=== PATIENT | female | born 1975 | race Caucasian/White ===

== ENCOUNTER 2020-07-10 13:30 | Outpatient (REF) | payer OTHER, SELFPAY ==
[2020-07-10 13:59] LABS: COVID-19 Test Negative (Negative)
== END 2020-07-10 13:31 | disposition home or self-care (01) ==
LOC: HO.EMPCOV 13:30
PROVIDERS: PCP Nurse Practitioner Family; Visit Provider Internal Medicine
DX: Z20.828 Contact with and (suspected) exposure to other viral communicable diseases (principal)
CPT/HCPCS: 87635; C9803

== ENCOUNTER 2020-09-17 15:08 | Outpatient (REF) | payer OTHER, SELFPAY ==
[2020-09-17 15:32] LABS: COVID-19 Test Negative (Negative)
== END 2020-09-17 15:09 | disposition home or self-care (01) ==
LOC: HO.EMPCOV 15:08
PROVIDERS: Visit Provider Internal Medicine
DX: Z20.822 Contact with and (suspected) exposure to COVID-19 (principal)
CPT/HCPCS: 36415; 87635; C9803

== ENCOUNTER → 2021-10-08 11:21 | Outpatient (BNVA) | payer OTHER, SELFPAY | PROVIDERS: PCP Nurse Practitioner Family; Visit Provider Surgery | DX: K61.0 Anal abscess (principal) | CPT/HCPCS: 10060; 10061 ==

== ENCOUNTER → 2021-10-15 15:39 | Outpatient (BNVA) | payer OTHER, SELFPAY | PROVIDERS: PCP Nurse Practitioner Family; Visit Provider Surgery | DX: Z13.89 Encounter for screening for other disorder (principal) ==

== ENCOUNTER 2022-04-22 14:12 | Outpatient (REF) | payer OTHER, SELFPAY ==
[2022-04-22 15:00] LABS: MANUAL DIFF FLAG NO
[2022-04-22 15:31] LABS: Basophils Absolute Auto 0.1 X10*3/uL (0.0-0.2); Basophils Percent Auto 0.9 % (0-2); Eosinophils Absolute Auto 0.1 X10*3/uL (0.0-0.4); Eosinophils Percent Auto 1.2 % (0-4); Imm Gran Abs Auto 0.02 X10*3/uL (0.00-0.03); Imm Gran Pct Auto 0.2 % (0.0-0.4); Immature Retic Fraction 16.6 % (3.0-15.9); Lymphocytes Absolute Auto 2.4 X10*3/uL (1.2-4.9); Lymphocytes Percent Auto 29.2 % (20-40); Mean Corpuscular HGB Conc 32.1 g/dl (31.0-35.0); Mean Corpuscular Hemoglobin 27.7 pg (27.0-33.0); Mean Corpuscular Volume 86.2 fL (80.0-98.0); Mean Platelet Volume 9.3 fL (9.4-12.3); Monocytes Absolute Auto 0.5 X10*3/uL (0.1-1.2); Monocytes Percent Auto 6.4 % (2-11); Neutrophils Absolute Auto 5.1 x10*3/uL (2.0-8.3); Neutrophils Percent Auto 62.1 % (45-73); Platelet Count 306 X10*3/uL (160-400); Red Blood Count 3.25 X10*6/uL (4.20-5.50); Red Cell Distribution Width 18.8 % (11.0-16.0); Retic HGB Equivalent 37.1 pg (30.0-35.0); Reticulocyte Percent 1.4 % (0.5-1.8); Reticulocytes Absolute 0.047 X10*6/uL (0.026-0.095); White Blood Count 8.2 X10*3/uL (4.8-10.8)
[2022-04-22 16:01] LABS: Alanine Aminotransferase 53 U/L (0-31); Albumin Level 4.3 g/dL (3.5-5.0); Alkaline Phosphatase 103 U/L (39-117); Anion Gap 17 (12-20); Aspartate Amino Transferase 70 U/L (5-31); Bilirubin Total 0.4 mg/dL (0.0-1.0); Blood Urea Nitrogen 12 mg/dL (9-16); C Reactive Protein 0.09 mg/dL (< or = 0.50); Calcium 9.5 mg/dL (8.4-10.2); Carbon Dioxide 25 mmol/L (22-29); Chloride 101 mmol/L (96-108); Estimated Glomerular Filt Rate > 60; Glucose Random 101 mg/dL (60-115); Iron 41 mcg/dL (30-160); Magnesium 1.5 mg/dL (1.6-2.6); Potassium 4.3 mmol/L (3.3-5.1); Sodium 139 mmol/L (135-145); Total Protein 8.1 g/dL (6.5-8.0)
[2022-04-22 16:13] LABS: Erythrocyte Sedimentation Rate 27 MM/HR (0-20)
[2022-04-22 16:15] LABS: Ferritin 36 ng/mL (10-250)
[2022-04-22 16:44] LABS: Percent Iron Saturation 7 % (15-50); Total Iron Binding Capacity 563 mcg/dL (228-428); Unsaturated Iron Binding 522 ug/dL
[2022-04-23 07:12] LABS: HBS Num1 277.56 mIU/mL (0-7.99); HBc Num1 0.07 S/CO (0.00-0.79); HBsAGNum1 0.29 S/CO (0.00-0.99); Hepatitis A Antibody IgM 0.26 Index (0-0.79); Hepatitis B Core Antibody Nonreactive (Nonreactive); Hepatitis B Surface Antigen Negative (Negative); ~HepC Num1 0.06 S/CO (0.00-0.79); ~Hepatitis A Antibody IgM Nonreactive (Nonreactive); ~Hepatitis B Surface Antibody REACTIVE (Nonreactive); ~Hepatitis C Antibody Nonreactive (Nonreactive)
== END 2022-04-22 14:13 | disposition home or self-care (01) ==
LOC: HO.LAB 14:12
PROVIDERS: PCP Nurse Practitioner Family; Visit Provider Nurse Practitioner Family
DX: D64.9 Anemia, unspecified (principal); M79.604 Pain in right leg; M79.605 Pain in left leg
CPT/HCPCS: 36415; 80053; 82728; 83540; 83735; 85025; 85045; 85652; 86140; 86704; 86706; 86709; 86803; 87340

== ENCOUNTER 2022-06-03 09:14 | Outpatient (REF) | payer OTHER, SELFPAY ==
[2022-06-03 10:15] LABS: Rheumatoid Factor 28.7 IU/mL (<15.0)
[2022-06-03 10:37] LABS: Erythrocyte Sedimentation Rate 22 MM/HR (0-20)
[2022-06-07 15:26] LABS: Cyclic Citrullinated Peptide <16 UNITS
== END 2022-06-03 09:15 | disposition home or self-care (01) ==
LOC: HO.LAB 09:14
PROVIDERS: PCP Nurse Practitioner Family; Visit Provider Physician Assistant
DX: M33.20 Polymyositis, organ involvement unspecified (principal)
CPT/HCPCS: 36415; 85652; 86141; 86200; 86431

== ENCOUNTER 2022-06-14 12:38 | Outpatient (REF) | payer OTHER, SELFPAY ==
[2022-06-14 13:07] LABS: MANUAL DIFF FLAG NO
[2022-06-14 13:39] LABS: Basophils Absolute Auto 0.1 X10*3/uL (0.0-0.2); Basophils Percent Auto 0.8 % (0-2); Eosinophils Absolute Auto 0.1 X10*3/uL (0.0-0.4); Eosinophils Percent Auto 1.1 % (0-4); Hematocrit 36.5 % (37.0-47.0); Hemoglobin 11.8 g/dl (12.0-16.0); Imm Gran Abs Auto 0.03 X10*3/uL (0.00-0.03); Imm Gran Pct Auto 0.5 % (0.0-0.4); Lymphocytes Absolute Auto 2.2 X10*3/uL (1.2-4.9); Lymphocytes Percent Auto 32.7 % (20-40); Mean Corpuscular HGB Conc 32.3 g/dl (31.0-35.0); Mean Corpuscular Hemoglobin 30.8 pg (27.0-33.0); Mean Corpuscular Volume 95.3 fL (80.0-98.0); Mean Platelet Volume 9.2 fL (9.4-12.3); Monocytes Absolute Auto 0.6 X10*3/uL (0.1-1.2); Neutrophils Absolute Auto 3.7 x10*3/uL (2.0-8.3); Neutrophils Percent Auto 55.9 % (45-73); Platelet Count 279 X10*3/uL (160-400); Red Blood Count 3.83 X10*6/uL (4.20-5.50); Red Cell Distribution Width 16.9 % (11.0-16.0); White Blood Count 6.6 X10*3/uL (4.8-10.8)
[2022-06-14 14:06] LABS: Appearance Urine Clear; Color Urine DK YELLOW; Glucose Urine UA Negative (Negative); Leukocyte Esterase Urine Small (1+) (Negative); Nitrite Urine Negative (Negative); Specific Gravity - Urine >= 1.030 (1.005-1.025); UMIC TRIGGER UA YES; Urine Blood Negative (Negative); Urine Ketones Trace mg/dL (Negative); Urine Protein Trace mg/dL (Neg-Trace)
[2022-06-14 14:27] LABS: Erythrocyte Sedimentation Rate 25 MM/HR (0-20)
[2022-06-14 14:34] LABS: Creatinine Urine 362.04 mg/dL
[2022-06-14 14:41] LABS: Bacteria Urine Trace (None Seen); Hyaline Casts Urine 0-2 /LPF (0-2); RBC Urine 0-2 /HPF (0-2); WBC Urine 0-5 /HPF (0-5)
[2022-06-14 14:50] LABS: Alanine Aminotransferase 46 U/L (0-31); Albumin Level 4.4 g/dL (3.5-5.0); Alkaline Phosphatase 94 U/L (39-117); Anion Gap 17 (12-20); Aspartate Amino Transferase 67 U/L (5-31); Bilirubin Total 0.8 mg/dL (0.0-1.0); Blood Urea Nitrogen 4 mg/dL (9-16); C Reactive Protein 0.09 mg/dL (< or = 0.50); Calcium 9.8 mg/dL (8.4-10.2); Carbon Dioxide 25 mmol/L (22-29); Chloride 101 mmol/L (96-108); Estimated Glomerular Filt Rate > 60; Glucose Random 105 mg/dL (60-115); Lactate Dehydrogenase 174 U/L (122-220); Potassium 3.7 mmol/L (3.3-5.1); Sodium 139 mmol/L (135-145); Total Protein 8.2 g/dL (6.5-8.0)
[2022-06-14 14:58] LABS: TSH reflex Free T4 0.96 uIU/mL (0.32-4.0)
[2022-06-14 16:21] LABS: Total Protein Urine Random 37 mg/dL (<12)
[2022-06-15 16:51] LABS: Complement C3 141 mg/dL (83-193)
[2022-06-16 09:56] LABS: Anti-Centromere B Antibodies <1.0 NEG AI (<1.0 NEG)
[2022-06-16 12:26] LABS: Anti Nuclear Antibody Screen NEGATIVE (NEGATIVE)
[2022-06-16 15:57] LABS: TS Negative Control Passed; TS Panel A 4; TS Panel B 0; TS Positive Control Passed; TSpotTB Negative (Negative)
[2022-06-17 07:01] LABS: Anti DNA DS Antibody 2 IU/mL; Antibody to SS-A Antigen <1.0 NEG AI (<1.0 NEG); Antibody to SS-B Antigen <1.0 NEG AI (<1.0 NEG); SM/Ribonucleoprotein Ab <1.0 NEG AI (<1.0 NEG); Scleroderma 70 Antibody <1.0 NEG AI (<1.0 NEG); Smith Protein <1.0 NEG AI (<1.0 NEG)
[2022-06-18 23:11] LABS: Acetylcholine Receptor Binding <0.30 nmol/L
[2022-06-19 19:42] LABS: Acetylcholine Recep Modulating 21
[2022-06-22 03:45] LABS: Angiotensin Converting Enzyme 43.9 U/L (9-67)
[2022-06-22 19:26] LABS: Acetylcholine Recept. Blocking <15 (<15)
[2022-06-23 06:07] LABS: Aldolase 5.3 U/L (<=8.1)
== END 2022-06-14 12:39 | disposition home or self-care (01) ==
LOC: HO.LAB 12:38
PROVIDERS: PCP Nurse Practitioner Family; Visit Provider Student in an Organized Health Care Education/Training Program
DX: Z11.7 Encounter for testing for latent tuberculosis infection (principal); G72.9 Myopathy, unspecified
CPT/HCPCS: 36415; 80053; 81001; 82085; 82164; 82550; 83519; 83615; 84156; 84443; 85025; 85652; 86038; 86039; 86140; 86160; 86225; 86235; 86481

== ENCOUNTER 2022-06-16 15:50 | Outpatient (REF) | payer OTHER, SELFPAY | END 2022-06-16 15:51 | disposition home or self-care (01) | LOC: HO.MRI 15:50 | PROVIDERS: Visit Provider Student in an Organized Health Care Education/Training Program | DX: Z13.89 Encounter for screening for other disorder (principal) ==

== ENCOUNTER 2022-06-28 12:57 | Outpatient (REF) | payer OTHER, SELFPAY ==
--- NOTE | ~2022-06-28 | MR_ITS ---
EXAMINATION: MRI LEFT FEMUR WITHOUT AND WITH CONTRAST. CLINICAL INFORMATION: Myopathy. Patient reports leg pain, muscle pain. COMPARISON: None TECHNIQUE: MR of the left femur without and with contrast. 5.5 mL Gadavist. FINDINGS: No significant edema or enhancement is seen in the muscles of the femur to indicate significant myositis. No focal muscle tear is seen. No significant muscle fatty infiltration or atrophy is seen. Mild to moderate tendinosis/partial tearing of the distal gluteus minimus and the anterior fibers distal gluteus medius. The common hamstring, iliopsoas, rectus femoris tendons intact. No suspicious marrow signal changes in the femur. No evidence of fracture or avascular necrosis. No bulky adenopathy is visualized in the left groin. MR/MR femur LT wo/w con IMPRESSION: No MRI findings to suggest significant myositis in the left femur muscles. Mild to moderate tendinosis/partial tearing of the distal gluteus minimus and the anterior fibers of the distal gluteus medius.
== END 2022-06-28 12:58 | disposition home or self-care (01) ==
LOC: HO.MRI 12:57
PROVIDERS: Visit Provider Student in an Organized Health Care Education/Training Program
DX: G72.9 Myopathy, unspecified (principal)
CPT/HCPCS: 73720; A9585

== ENCOUNTER 2022-08-05 07:27 | Day surgery (SDC) | payer OTHER, SELFPAY ==
[2022-07-30 11:44] VITALS: BMI 23.2
--- NOTE | 2022-08-04 11:00 | P.CONAN_ITS ---
Documented by User: Analia Toussaint NP 08/04/22 11:02 HPI - Anesthesia Eval Consult details Narrative: 47yo F for Upper Endoscopy and Colonoscopy Hx colon resection/ostomy with reversal PMFSH Active Problems Active Problems: All Active Problems (Updated 07/06/22 @ 14:42 by Iram Edgar MD) Normochromic normocytic anemia (Acute) Polymyositis (Acute) Myopathy (Acute) Elevated LFTs (Acute) Tendinopathy of gluteus medius (Acute) Perianal abscess (Acute) Hypertension (Acute) Past Medical History Medical History Acute diverticulitis Anemia Encounter for testing for latent tuberculosis infection Hypertension Intestinal perforation Migraine Perianal abscess Family History Family History Maternal Grandfather Lung cancer Maternal Grandmother Stomach cancer Surgical History Surgical History History of appendix removal History of colon resection History of colostomy reversal History of drainage of abscess History of eye surgery Social History Social History Household Members: Significant Other and Children Housing: House Are you a primary manager respiratory care to a significant other at home: No Do you presently have visiting nurse or other home services: No Alcohol intake: current Alcohol intake frequency: holidays/special occasions only Patient Tobacco Use Status: Current someday Tobacco user Tobacco use type: Cigarette Are you DNR?: No Advance Directives: No Advance Directives Information Provided: Yes Nutrition Risks: No Nutritional Risk service: No Current occupational status: employed Current occupation: [employer] Meds Allergies Allergy/AdvReac Type Severity Reaction Status Date / Time morphine Allergy Unknown redness Verified 08/05/22 07:23 Home Medications Medication Instructions Recorded Confirmed Last Taken Type multivitamin 1 tab PO DAILY 10/08/21 08/05/22 Unknown History biotin 5,000 mcg sublingual tablet 5,000 mcg sublingual DAILY 05/18/22 08/05/22 Unknown History cetirizine 10 mg tablet (Zyrtec) 10 mg PO DAILY 05/18/22 08/05/22 Unknown History cholecalciferol (vitamin D3) 125 125 mcg PO DAILY 05/18/22 08/05/22 Unknown History mcg (5,000 unit) tablet (Vitamin D3) cyanocobalamin (vitamin B-12) 1,000 mcg PO DAILY 05/18/22 08/05/22 Unknown History 1,000 mcg tablet,extended release (Vitamin B-12 ER) ferrous sulfate 325 mg (65 mg 325 mg PO DAILY 05/18/22 08/05/22 Unknown History iron) tablet folic acid 400 mcg tablet 0.4 mg PO DAILY 05/18/22 08/05/22 Unknown History vitamin B complex 1 tab PO DAILY 05/18/22 08/05/22 Unknown History esomeprazole magnesium 20 mg 20 mg PO DAILY 05/27/22 08/05/22 Unknown History capsule,delayed release clonazepam 1 mg tablet 0.5 mg PO DAILY Migraine Headache 06/04/22 08/05/22 08/05/22 History propranolol 20 mg tablet 20 mg PO DAILY 06/04/22 08/05/22 08/05/22 History Exam Exam Date and Time: August 04, 2022 1100 Height,Weight and Vital Signs: Height 5 ft Weight 53.977 kg Pertinent Lab Results Pertinent Lab Results: Laboratory Tests 06/14/22 06/14/22 13:04 13:04 WBC 6.6 Hgb 11.8 L Hct 36.5 L Plt Count 279 Sodium 139 Potassium 3.7 Chloride 101 Carbon Dioxide 25 BUN 4 L D Creatinine 0.71 Documented by User: Marlyn Gil MD 08/05/22 09:10 [facility] Past Medical History Medical History Acute diverticulitis Anemia Encounter for testing for latent tuberculosis infection Hypertension Intestinal perforation Migraine Perianal abscess Family History Family History Maternal Grandfather Lung cancer Maternal Grandmother Stomach cancer Family history of problems with anesthesia: No Surgical History Surgical History History of appendix removal History of colon resection History of colostomy reversal History of drainage of abscess History of eye surgery History of Problems with Anesthesia: No Social History Social History Household Members: Significant Other and Children Housing: House Are you a primary manager respiratory care to a significant other at home: No Do you presently have visiting nurse or other home services: No Alcohol intake: current Alcohol intake frequency: holidays/special occasions only Patient Tobacco Use Status: Current someday Tobacco user Tobacco use type: Cigarette Are you DNR?: No Advance Directives: No Advance Directives Information Provided: Yes Nutrition Risks: No Nutritional Risk service: No Current occupational status: employed Current occupation: [employer] Meds Allergies Allergy/AdvReac Type Severity Reaction Status Date / Time morphine Allergy Unknown redness Verified 08/05/22 07:23 Home Medications Medication Instructions Recorded Confirmed Last Taken Type multivitamin 1 tab PO DAILY 10/08/21 08/05/22 Unknown History biotin 5,000 mcg sublingual tablet 5,000 mcg sublingual DAILY 05/18/22 08/05/22 Unknown History cetirizine 10 mg tablet (Zyrtec) 10 mg PO DAILY 05/18/22 08/05/22 Unknown History cholecalciferol (vitamin D3) 125 125 mcg PO DAILY 05/18/22 08/05/22 Unknown History mcg (5,000 unit) tablet (Vitamin D3) cyanocobalamin (vitamin B-12) 1,000 mcg PO DAILY 05/18/22 08/05/22 Unknown History 1,000 mcg tablet,extended release (Vitamin B-12 ER) ferrous sulfate 325 mg (65 mg 325 mg PO DAILY 05/18/22 08/05/22 Unknown History iron) tablet folic acid 400 mcg tablet 0.4 mg PO DAILY 05/18/22 08/05/22 Unknown History vitamin B complex 1 tab PO DAILY 05/18/22 08/05/22 Unknown History esomeprazole magnesium 20 mg 20 mg PO DAILY 05/27/22 08/05/22 Unknown History capsule,delayed release clonazepam 1 mg tablet 0.5 mg PO DAILY Migraine Headache 06/04/22 08/05/22 08/05/22 History propranolol 20 mg tablet 20 mg PO DAILY 06/04/22 08/05/22 08/05/22 History Exam Airway Mallampati Class: II TM Dist: >3cm Neck ROM: Full Heart: rr Lungs: cta Assessment and Plan Assessment Anesthesia Assessment: Anesthesia Plan Discussed and Chart Reviewed Final Anesthetic Review Family History of Problems with Anesthesia: No History of Problems with Anesthesia: No NPO: Yes ASA Class: II Final Preanesthetic Review: No Changes in Pt Med Stat, Meds/Allgs Chart Reviewed, Consent Obtained/Reviewed and Anes Risks/Benef Reviewed Patient Risk: Low Procedure Risk: Low Anesthetic Plan Anesthetic Plan: MAC: Disposition: Standard PACU
[2022-08-05 07:43] LABS: UPreg QC Valid YES; Urine Pregnancy NEGATIVE (NEGATIVE)
[2022-08-05] MEDS: Lactated Ringers 1,000 ML 100 ML IVCONT (07:54)
[2022-08-05 07:56] VITALS: BP 138/85; PULSE 83; RESP 18; TEMP 36.2; O2SAT 96
--- NOTE | 2022-08-05 08:25 | PC.NURSE ---
Dr. Gil aware that patient ate jello and 1/2 glass gatorade at 0330. Okay to proceed per anesthesia. will updated Dr. Valles
--- NOTE | 2022-08-05 08:35 | MHC.SHP ---
Pre-Procedural Eval Section A Date of Service: 08/05/22 Section B Chief Complaint: Anemia Details of Present Illness: 47-year-old female past medical history of complicated diverticulitis status post segmental colon resection followed by reversal of colostomy in 2019, appendectomy 2013, ongoing workup for myositis, who is here for EGD/colo for iron deficiency anemia Relevant Social History: Alcohol Use Present Medications: see Short Stay Collaborative assessment Medical History: Significant History (HTN, myositis, anemia ) History of Previous Operations: Relevant previous surgery/procedure and date(s) (as above ) Allergies: Allergies Allergy/AdvReac Type Severity Reaction Status Date / Time morphine Allergy Unknown redness Verified 08/05/22 07:23 Review of Systems Review of Systems Comment: 10 point ROS negative except as above Exam Exam Comment: Gen appear: No acute distress, well nourished HEENT: no icterus Chest: No overt resp distress Abd: soft, nontender, nondistended Psych: Stable affect, answering questions appropriately Neuro: A/Ox3 noted to move all extremities spontaneously Ext: no peripheral edema Plan Diagnosis/Plan: Unchanged I have reviewed the history and physical and performed a pertinent physical examination on my patient. No changes have occurred unless specified. Time Spent With Patient Time: Total time managing care of this patient today ____ minutes.
--- NOTE | 2022-08-05 09:18 | P.OP_ITS ---
Operative Note Operative Note Date of Service: 08/05/22 Narrative: Procedure:?Esophagogastroduodenoscopy and Colonoscopy Indication:?Anemia, diarrhea Endoscopist:?Ana M Valles MD Anesthesia Provider:?Dr Marlyn Gil Anesthesia type:?MAC Instrument:?Olympus GIF-H190 and PCF-H190L ?? EGD Procedure:?? The procedure, indications, preparation and potential complications were reviewed with the patient, who indicated understanding and gave written informed consent to proceed. A physical exam was performed. The endoscope was introduced through the mouth, and advanced to the third part of duodenum. The mucosa was carefully examined on slow withdrawal of the endoscope. The patient tolerated the procedure well. There were no immediate complications.? ? EGD Findings:? * Esophagus:? Normal mucosa. Z line noted at 37 cm. There was a small hiatal hernia with the diaphragmatic pinch noted at 40 cm. * Stomach:?Normal stomach mucosa. Random cold forceps gastric biopsies were taken to rule out H Pylori infection.? * Duodenum:? Normal duodenum mucosa. Cold forceps biopsies were taken from duodenal bulb and second portion of the duodenum to rule out celiac sprue. Colonoscopy Procedure:? The patient was then turned for the colonoscopy. A digital rectal exam was performed which was normal. The colonoscope was then inserted through the anus and advanced through the colon to the cecum at 70 cm. The appendiceal orifice and ileocecal valve was identified.? Mucosa was carefully examined under high definition white light as the instrument was slowly withdrawn in a retrograde panoramic fashion. Retroflexion was performed in rectum. The procedure was not difficult. There were no immediate obvious complications. The quality of the prep was BBPS: 2+2+2 = adequate Withdrawal time 16 minutes. Limitations: No limitations Colonoscopy findings: Mucosa: Mucosal pallor was noted in the rectum with spontaneous scant bleeding. Cold forceps biopsies were taken to rule out ischemic changes.Remaining colon mucosa was normal. Cold forceps biopsies were taken from right and left colon to rule out microscopic colitis. Protruding lesions: * Small internal hemorrhoids without stigmata of recent bleeding.? Excavated lesions: * Small and large mouthed diverticula noted throughout the colon L>R. Additional findings: [place]-colonic anastomosis in distal sigmoid colon. Impression:? * Normal esophagus * Normal stomach (biopsy) * Normal duodenum (biopsy) * Abnormal rectal mucosa (biopsy) * Diverticulosis * Internal hemorrhoids * Surgical anastomosis Recommendations:?? * Repeat colonoscopy in 7 years due to prep. * Follow biopsy results. Our office will call or send a letter with results within 7-10 days.? * Avoid NSAIDs. Above has been reviewed with the patient. Relevant educational hand outs were provided at discharge.?
[2022-08-05 09:27] VITALS: BP 135/81; PULSE 79; RESP 16; TEMP 36.4; O2SAT 99
[2022-08-05 09:42] VITALS: BP 139/80; PULSE 73; RESP 16; TEMP 36.4; O2SAT 99
== END 2022-08-05 10:14 | disposition home or self-care (01) ==
PROVIDERS: Nurse Practitioner; PCP Nurse Practitioner Family; Visit Provider Internal Medicine
PROC: (CPT 45380; principal; 2022-08-05 08:30)
DX: D50.9 Iron deficiency anemia, unspecified (principal); R19.7 Diarrhea, unspecified; K62.89 Other specified diseases of anus and rectum; K57.30 Diverticulosis of large intestine without perforation or abscess without bleeding; Z87.19 Personal history of other diseases of the digestive system; Z98.0 Intestinal bypass and anastomosis status; K64.8 Other hemorrhoids; R79.89 Other specified abnormal findings of blood chemistry; K29.80 Duodenitis without bleeding; K44.9 Diaphragmatic hernia without obstruction or gangrene; I10 Essential (primary) hypertension; M60.9 Myositis, unspecified; Z79.899 Other long term (current) drug therapy; Z88.8 Allergy status to other drugs, medicaments and biological substances; F10.90 Alcohol use, unspecified, uncomplicated; F17.210 Nicotine dependence, cigarettes, uncomplicated
CPT/HCPCS: 45380; 43239; 81025; 88305; 88342; J2250

== ENCOUNTER → 2022-08-20 08:17 | Outpatient (BNVA) | payer OTHER, SELFPAY | PROVIDERS: PCP Nurse Practitioner Family; Visit Provider Nurse Practitioner Family | DX: Z13.89 Encounter for screening for other disorder (principal) ==

== ENCOUNTER 2022-10-05 18:21 | Emergency (ER) | payer OTHER, SELFPAY ==
--- NOTE | ~2022-10-05 | CT_ITS ---
EXAMINATION: CT ABDOMEN AND PELVIS WITH CONTRAST CLINICAL INFORMATION: LLQ pain, hx doverticulitis COMPARISON: 11/08/2018 TECHNIQUE: Multidetector volumetric imaging was performed from the superior aspect of the liver through the pubic symphysis following administration of 85 mL Omnipaque 300 intravenous contrast. Sagittal and coronal reformatted images were obtained on the technologist workstation.. This CT examination was performed using dose optimization techniques as appropriate, variously including the following: *Automated exposure control *Adjustment of mA and/or kV according to patient size (this includes techniques or standardized protocols for targeted exams where dose is matched to indication/reason for exam; i.e. extremities or head) *Use of iterative reconstruction technique DLP: 392 mGy-cm FINDINGS: LUNG BASES: The visualized lung bases are unremarkable. LIVER, GALLBLADDER, AND BILIARY TREE: The liver is normal in size, shape, and attenuation. No focal hepatic lesion or biliary ductal dilatation is present. The gallbladder is unremarkable with no evidence of radiopaque gallstones, gallbladder wall thickening, or obvious pericholecystic inflammatory changes. PANCREAS: Unremarkable. SPLEEN: Unremarkable. ADRENAL GLANDS: Unremarkable. KIDNEYS AND URETERS: The kidneys are normal in size, shape, and attenuation. No hydronephrosis, hydroureter, or calculi seen. No perinephric stranding. BLADDER: Decompressed GASTROINTESTINAL TRACT: Anastomotic staple line at the rectosigmoid junction. There is scattered colonic diverticulosis but I do not appreciate any colonic wall thickening or significant pericolonic inflammatory change to suggest acute diverticulitis. Appendix is surgically absent. Visualized small bowel unremarkable ABDOMINAL WALL: No significant hernia is appreciated. LYMPHOVASCULAR STRUCTURES: No lymphadenopathy. The aorta is unremarkable. PELVIC VISCERA: IUD in the uterus OSSEOUS STRUCTURES: Degenerative changes in the lower lumbar spine CT/CT abdomen pelvis w IV con IMPRESSION: Chronic appearing and postoperative changes as described. I do not appreciate any acute intra-abdominal process.
--- NOTE | 2022-10-05 18:25 | ED_ITS ---
HPI - Abdominal Pain General Chief Complaint: Abdominal Pain <Vi Hamilton CNP - Last Filed: 10/05/22 18:33> Stated Complaint: Diverticulitis sent DR <Vi Hamilton CNP - Last Filed: 10/05/22 18:33> Time Seen by Provider: 10/05/22 19:41 <Vi Hamilton CNP - Last Filed: 10/05/22 18:33> Source: patient <WINSTON Matos - Last Filed: 10/05/22 21:53> Mode of arrival: ambulatory <WINSTON Matos - Last Filed: 10/05/22 21:53> Limitations: no limitations <WINSTON Matos - Last Filed: 10/05/22 21:53> History of Present Illness HPI narrative: This is a 47-year-old female history of hypertension, myopathy, polymyos itis, history of complicated diverticulitis status post segmental colon resection followed by reversal of colostomy in 2019, appendectomy in 2014 stenting with lower abdominal pain, was advised to come in by her GI doctor Dr. Valles. She reports that this lower abdominal pain has been present for the past 2-3 days, intermittent in nature, crampy, tells me that since she has been here pain has been improving. Patient reports associated nausea however no vomiting. Patient does report diarrhea tells me she is having 15 episodes of completely loose stool status post finishing amoxicillin a few days ago. Denies fevers, chills, chest pain, shortness of breath, headache, vision changes, dizziness, weakness, hematochezia, hematemesis. <WINSTON Matos - Last Filed: 10/05/22 21:53> Related Data Home Medications: Home Medications Medication Instructions Recorded Confirmed multivitamin 1 tab PO DAILY 10/08/21 08/20/22 biotin 5,000 mcg sublingual tablet 5,000 mcg sublingual DAILY 05/18/22 08/20/22 cetirizine 10 mg tablet (Zyrtec) 10 mg PO DAILY 05/18/22 08/20/22 cholecalciferol (vitamin D3) 125 125 mcg PO DAILY 05/18/22 08/20/22 mcg (5,000 unit) tablet (Vitamin D3) cyanocobalamin (vitamin B-12) 1,000 mcg PO DAILY 05/18/22 08/20/22 1,000 mcg tablet,extended release (Vitamin B-12 ER) ferrous sulfate 325 mg (65 mg 325 mg PO DAILY 05/18/22 08/20/22 iron) tablet folic acid 400 mcg tablet 0.4 mg PO DAILY 05/18/22 08/20/22 vitamin B complex 1 tab PO DAILY 05/18/22 08/20/22 clonazepam 1 mg tablet 0.5 mg PO DAILY Migraine Headache 06/04/22 08/20/22 propranolol 20 mg tablet 20 mg PO DAILY 06/04/22 08/20/22 omeprazole 20 mg capsule,delayed 20 mg PO DAILY 08/20/22 08/20/22 release Previous Rx's Medication Instructions Recorded celecoxib 100 mg capsule 100 mg PO BID PRN pain 30 days #60 09/22/22 caps loperamide 2 mg capsule 2 mg PO Q6H PRN loose stool #30 10/05/22 (Anti-Diarrheal (loperamide)) caps <Vi Hamilton CNP - Last Filed: 10/05/22 18:33> Allergies/Adverse Reactions: Allergies Allergy/AdvReac Type Severity Reaction Status Date / Time morphine Allergy Unknown redness Verified 08/20/22 08:50 <Vi Hamilton CNP - Last Filed: 10/05/22 18:33> Review of Systems Review of Systems Constitutional : No Weight loss, No Fever, No Chills, No Fatigue, No Malaise ENT/Mouth : No sore throat, No Rhinorrhea Eyes: No Eye Pain, No Swelling, No Redness Cardiovascular : No Chest Pain, No SOB, No Dyspnea on Exertion, No Orthopnea, No Edema, No Palpitations Respiratory : No Cough, No Sputum, No Wheezing Gastrointestinal : + Nausea, No Vomiting, No Diarrhea, No Constipation, + abdominal Pain, No Hematochezia, No Melena Genitourinary : No Dysuria, No Urinary Frequency, No Hematuria, Musculoskeletal : No joint pain, No Myalgias, No Joint Swelling Skin : No Skin Lesions, No rash Neuro : No Weakness, No Numbness, No Dizziness, No Headache Psych : No Anxiety/Panic, No Depression All other systems reviewed and are negative <WINSTON Matos - Last Filed: 10/05/22 21:53> Yes all other systems are reviewed and are negative <WINSTON Matos - Last Filed: 10/05/22 21:53> FORMERLY [facility] Past Medical History Attestation statement: The following information was validated with the patient. <WINSTON Matos - Last Filed: 10/05/22 21:53> Source: old records reviewed and nursing notes reviewed <WINSTON Matos - Last Filed: 10/05/22 21:53> Medical History: Medical History Acute diverticulitis Anemia Encounter for testing for latent tuberculosis infection Hypertension Intestinal perforation Migraine Perianal abscess <Vi Hamilton CNP - Last Filed: 10/05/22 18:33> Surgical History: Surgical History History of appendix removal History of colon resection History of colostomy reversal History of drainage of abscess History of eye surgery <Vi Hamilton CNP - Last Filed: 10/05/22 18:33> Family History Family History: Family History Maternal Grandfather Lung cancer Maternal Grandmother Stomach cancer Father Diabetes Cardiac arrest <Vi Hamilton CNP - Last Filed: 10/05/22 18:33> Social History Social History: Social History Household Members: Significant Other and Children Housing: House Are you a primary managed care manager to a significant other at home: No Do you presently have visiting nurse or other home services: No Alcohol intake: current Alcohol intake frequency: holidays/special occasions on ly Patient Tobacco Use Status: Current someday Tobacco user Tobacco use type: Cigarette Advance Directives: No Advance Directives Information Provided: No service: No Current occupational status: employed Current occupation: [employer] <Vi Hamilton CNP - Last Filed: 10/05/22 18:33> Physical Exam ED Vital Signs: Vital Signs - 24 hr 10/05/22 18:31 10/05/22 20:22 Temperature 98.7 F 98.7 F Pulse Rate 104 H 82 Respiratory Rate 18 16 Blood Pressure 157/102 H 151/89 H Pulse Oximetry 96 98 Oxygen Delivery Method Room Air Room Air BMI result Body Mass Index 24.4 <Vi CadenaRAQUEL rubi - Last Filed: 10/05/22 18:33> Vital Signs - 24 hr 10/05/22 18:31 10/05/22 20:22 Temperature 98.7 F 98.7 F Pulse Rate 104 H 82 Respiratory Rate 18 16 Blood Pressure 157/102 H 151/89 H Pulse Oximetry 96 98 Oxygen Delivery Method Room Air Room Air BMI result Body Mass Index 24.4 Vital signs significant for tachycardia likely secondary to anxiety <WINSTON Matos - Last Filed: 10/05/22 21:53> Appearance: Alert.? Oriented X3.? No acute distress.? Patient appears anxious, agitated. Head: Normocephalic, atraumatic, no step-offs or deformities Eyes: Pupils equal, round and reactive to light.? ENT: Pharynx normal.? Neck: Normal inspection.? Neck supple.? CVS: Normal heart rate and rhythm.? Pulses normal.? Respiratory: No respiratory distress.? Breath sounds normal.? Abdomen: Soft and mild tenderness to lower abdomen throughout.? Skin: Skin warm and dry.? Normal skin color.? Normal skin turgor.? Extremities: No lower extremity edema.? No calf ttp. 5/5 strength to bilateral upper and lower extremities Neuro: Oriented X 3.? No motor deficit.? No sensory deficit. CN 2-12 intact <WINSTON Matos - Last Filed: 10/05/22 21:53> Course Course Course Narrative: This is an RME: Additional HPI, ROS, PE not included below will be deferred to primary provider. Patient is a 47-year-old female who presents to the emergency department as advised by GI doctor. Received expect from Dr. Vlales; patient with lower abdominal pain cramping history of complicated diverticulitis with partial colectomy in the past. Concern for acute diverticulitis. Patient is reporting onset of lower abdominal pain to be 2-3 days ago. Denies bloody or dark stools. Stools have been loose, and has pain with bowel movement. Denies symptoms. Plan: labs, urinalysis, CT ABD and pelvis <Vi Hamilton CNP - Last Filed: 10/05/22 18:33> Reevaluation(s) Reevaluation #1: CBC appears to be around patient's baseline. Chemistry with low potassium 3.1 will give oral potassium at this time. Lactic acid elevated 2.2 likely secondary to dehydration. UA without infection. CT of the abdomen and pelvis with chronic appearing and postoperative changes as described. No appreciated acute intra-abdominal process seen. <WINSTON Matos - Last Filed: 10/05/22 21:53> Time: 21:40 <WINSTON Matos - Last Filed: 10/05/22 21:53> Reevaluation #2: Patient reports the pain has subsided. Repeat laboratory studies will be obtained. GI/stool studies pending. <WINSTON Matos - Last Filed: 10/05/22 21:53> Time: 21:41 <WINSTON Matos - Last Filed: 10/05/22 21:53> Reevaluation #3: Patient refusing repeat laboratory studies, refusing GI in stool study she tells me she has been here for wait too long. He tells me she will take vitamins at home I explained to her that potassiums and electrolyte that can affect heart, she verbalizes understanding. Patient will be leaving against medical advice has not given us a stools sample. Advised return with any new or worsening symptoms. Educated on worrisome signs and symptoms and when to return. At this time patient will be discharged home <WINSTON Matos - Last Filed: 10/05/22 21:53> Time: 21:49 <WINSTON Matos - Last Filed: 10/05/22 21:53> Medical Decision Making Medical Decision Making MDM Narrative: 2022 47-year-old female presents with lower abdominal pain for few days worsening. With associated nausea however no vomiting. Significant GI history with complicated diverticulitis. Patient also reporting 15 bowel movements of completely loose stool over the past few days, reports she recently completed a course of amoxicillin. Physical exam with mild tenderness throughout entire lower abdomen. Concerns for possible diverticulitis versus diverticulosis. No signs of acute abdomen. History and physical exam not consistent ovarian torsion. Diarrhea likely secondary to antibiotics however there is some concern for had Clostridium difficile. Will rule out electrolyte abnormalities. Plan at this time labs, imaging, urine, stool studies <WINSTON Matos - Last Filed: 10/05/22 21:53> Differential Diagnosis Differential Diagnoses: The differential diagnosis associated with the presentation includes <WINSTON Matos - Last Filed: 10/05/22 21:53> Concerns for possible diverticulitis versus diverticulosis. No signs of acute abdomen. History and physical exam not consistent ovarian torsion. Diarrhea likely secondary to antibiotics however there is some concern for had Clostridium difficile. Will rule out electrolyte abnormalities. <WINSTON Matos - Last Filed: 10/05/22 21:53> Admission/Observation Consideration of admission/observation: Escalation of care including admission/observation considered <WINSTON Matos - Last Filed: 10/05/22 21:53> Lab Data MDM Lab Attestation statement: I reviewed the patient's lab results. <WINSTON Matos - Last Filed: 10/05/22 21:53> Result Diagrams: 10/05/22 18:41 10/05/22 18:41 <Vi Hamilton CNP - Last Filed: 10/05/22 18:33> Labs: Lab Results 10/05/22 10/05/22 10/05/22 Range/Units 18:41 18:41 18:41 WBC 7.1 (4.8-10.8) X10*3/uL RBC 3.75 L (4.20-5.50) X10*6/uL Hgb 12.7 (12.0-16.0) g/dl Hct 37.0 (37.0-47.0) % MCV 98.7 H (80.0-98.0) fL MCH 33.9 H (27.0-33.0) pg MCHC 34.3 (31.0-35.0) g/dl RDW 12.9 (11.0-16.0) % Plt Count 211 (160-400) X10*3/uL MPV 8.9 L (9.4-12.3) fL Immature Gran % (Auto) 0.3 (0.0-0.4) % Neut % (Auto) 57.4 (45-73) % Lymph % (Auto) 30.4 (20-40) % Placer % (Auto) 10.6 (2-11) % Eos % (Auto) 0.7 (0-4) % Baso % (Auto) 0.6 (0-2) % Lymph # (Auto) 2.2 (1.2-4.9) X10*3/uL Placer # (Auto) 0.8 (0.1-1.2) X10*3/uL Eos # (Auto) 0.1 (0.0-0.4) X10*3/uL Baso # (Auto) 0.0 (0.0-0.2) X10*3/uL Abs Immat Gran (auto) 0.02 (0.00-0.03) X10*3/uL Absolute Neuts (auto) 4.1 (2.0-8.3) x10*3/uL Absolute Nucleated RBC 0.000 (0.0-0.012) X10*3/uL Nucleated RBC % (auto) 0.0 (0.0-0.2) /100WBC Sodium 137 (135-145) mmol/L Potassium 3.1 L D (3.3-5.1) mmol/L Chloride 103 (96-108) mmol/L Carbon Dioxide 22 (22-29) mmol/L Anion Gap 15 (12-20) BUN 3 L (9-16) mg/dL Creatinine 0.62 (0.5-1.4) mg/dL Estim Creat Clear Calc 86.5 Estimated GFR > 60 Random Glucose 116 H (60-115) mg/dL Lactic Acid 2.2 H* (0.5-2.0) mmol/L Calcium 9.4 (8.4-10.2) mg/dL Total Bilirubin 0.6 (0.0-1.0) mg/dL AST 148 H (5-31) U/L ALT 85 H (0-31) U/L Alkaline Phosphatase 125 H (39-117) U/L Total Protein 7.7 (6.5-8.0) g/dL Albumin 4.3 (3.5-5.0) g/dL Lipase 25 (8-78) U/L Urine Color Urine Appearance Urine pH (5.0-9.0) Ur Specific [place] (1.005-1.025) Urine Protein (Neg-Trace) mg/dL Urine Glucose (UA) (Negative) mg/dL Urine Ketones (Negative) mg/dL Urine Blood (Negative) Urine Nitrite (Negative) Ur Leukocyte Esterase (Negative) 10/05/22 Range/Units 20:25 WBC (4.8-10.8) X10*3/uL RBC (4.20-5.50) X10*6/uL Hgb (12.0-16.0) g/dl Hct (37.0-47.0) % MCV (80.0-98.0) fL MCH (27.0-33.0) pg MCHC (31.0-35.0) g/dl RDW (11.0-16.0) % Plt Count (160-400) X10*3/uL MPV (9.4-12.3) fL Immature Gran % (Auto) (0.0-0.4) % Neut % (Auto) (45-73) % Lymph % (Auto) (20-40) % Placer % (Auto) (2-11) % Eos % (Auto) (0-4) % Baso % (Auto) (0-2) % Lymph # (Auto) (1.2-4.9) X10*3/uL Placer # (Auto) (0.1-1.2) X10*3/uL Eos # (Auto) (0.0-0.4) X10*3/uL Baso # (Auto) (0.0-0.2) X10*3/uL Abs Immat Gran (auto) (0.00-0.03) X10*3/uL Absolute Neuts (auto) (2.0-8.3) x10*3/uL Absolute Nucleated RBC (0.0-0.012) X10*3/uL Nucleated RBC % (auto) (0.0-0.2) /100WBC Sodium (135-145) mmol/L Potassium (3.3-5.1) mmol/L Chloride (96-108) mmol/L Carbon Dioxide (22-29) mmol/L Anion Gap (12-20) BUN (9-16) mg/dL Creatinine (0.5-1.4) mg/dL Estim Creat Clear Calc Estimated GFR Random Glucose (60-115) mg/dL Lactic Acid (0.5-2.0) mmol/L Calcium (8.4-10.2) mg/dL Total Bilirubin (0.0-1.0) mg/dL AST (5-31) U/L ALT (0-31) U/L Alkaline Phosphatase (39-117) U/L Total Protein (6.5-8.0) g/dL Albumin (3.5-5.0) g/dL Lipase (8-78) U/L Urine Color Yellow Urine Appearance Clear Urine pH 7.0 (5.0-9.0) Ur Specific [place] <= 1.005 (1.005-1.025) Urine Protein Negative (Neg-Trace) mg/dL Urine Glucose (UA) Negative (Negative) mg/dL Urine Ketones Negative (Negative) mg/dL Urine Blood Negative (Negative) Urine Nitrite Negative (Negative) Ur Leukocyte Esterase Negative (Negative) <Vi Hamilton, BIOSTATISTICS DIRECTOR - Last Filed: 10/05/22 18:33> Lab Results 10/05/22 10/05/22 10/05/22 Range/Units 18:41 18:41 18:41 WBC 7.1 (4.8-10.8) X10*3/uL RBC 3.75 L (4.20-5.50) X10*6/uL Hgb 12.7 (12.0-16.0) g/dl Hct 37.0 (37.0-47.0) % MCV 98.7 H (80.0-98.0) fL MCH 33.9 H (27.0-33.0) pg MCHC 34.3 (31.0-35.0) g/dl RDW 12.9 (11.0-16.0) % Plt Count 211 (160-400) X10*3/uL MPV 8.9 L (9.4-12.3) fL Immature Gran % (Auto) 0.3 (0.0-0.4) % Neut % (Auto) 57.4 (45-73) % Lymph % (Auto) 30.4 (20-40) % Placer % (Auto) 10.6 (2-11) % Eos % (Auto) 0.7 (0-4) % Baso % (Auto) 0.6 (0-2) % Lymph # (Auto) 2.2 (1.2-4.9) X10*3/uL Placer # (Auto) 0.8 (0.1-1.2) X10*3/uL Eos # (Auto) 0.1 (0.0-0.4) X10*3/uL Baso # (Auto) 0.0 (0.0-0.2) X10*3/uL Abs Immat Gran (auto) 0.02 (0.00-0.03) X10*3/uL Absolute Neuts (auto) 4.1 (2.0-8.3) x10*3/uL Absolute Nucleated RBC 0.000 (0.0-0.012) X10*3/uL Nucleated RBC % (auto) 0.0 (0.0-0.2) /100WBC Sodium 137 (135-145) mmol/L Potassium 3.1 L D (3.3-5.1) mmol/L Chloride 103 (96-108) mmol/L Carbon Dioxide 22 (22-29) mmol/L Anion Gap 15 (12-20) BUN 3 L (9-16) mg/dL Creatinine 0.62 (0.5-1.4) mg/dL Estim Creat Clear Calc 86.5 Estimated GFR > 60 Random Glucose 116 H (60-115) mg/dL Lactic Acid 2.2 H* (0.5-2.0) mmol/L Calcium 9.4 (8.4-10.2) mg/dL Total Bilirubin 0.6 (0.0-1.0) mg/dL AST 148 H (5-31) U/L ALT 85 H (0-31) U/L Alkaline Phosphatase 125 H (39-117) U/L Total Protein 7.7 (6.5-8.0) g/dL Albumin 4.3 (3.5-5.0) g/dL Lipase 25 (8-78) U/L Urine Color Urine Appearance Urine pH (5.0-9.0) Ur Specific [place] (1.005-1.025) Urine Protein (Neg-Trace) mg/dL Urine Glucose (UA) (Negative) mg/dL Urine Ketones (Negative) mg/dL Urine Blood (Negative) Urine Nitrite (Negative) Ur Leukocyte Esterase (Negative) 10/05/22 Range/Units 20:25 WBC (4.8-10.8) X10*3/uL RBC (4.20-5.50) X10*6/uL Hgb (12.0-16.0) g/dl Hct (37.0-47.0) % MCV (80.0-98.0) fL MCH (27.0-33.0) pg MCHC (31.0-35.0) g/dl RDW (11.0-16.0) % Plt Count (160-400) X10*3/uL MPV (9.4-12.3) fL Immature Gran % (Auto) (0.0-0.4) % Neut % (Auto) (45-73) % Lymph % (Auto) (20-40) % [place] % (Auto) (2-11) % Eos % (Auto) (0-4) % Baso % (Auto) (0-2) % Lymph # (Auto) (1.2-4.9) X10*3/uL Placer # (Auto) (0.1-1.2) X10*3/uL Eos # (Auto) (0.0-0.4) X10*3/uL Baso # (Auto) (0.0-0.2) X10*3/uL Abs Immat Gran (auto) (0.00-0.03) X10*3/uL Absolute Neuts (auto) (2.0-8.3) x10*3/uL Absolute Nucleated RBC (0.0-0.012) X10*3/uL Nucleated RBC % (auto) (0.0-0.2) /100WBC Sodium (135-145) mmol/L Potassium (3.3-5.1) mmol/L Chloride (96-108) mmol/L Carbon Dioxide (22-29) mmol/L Anion Gap (12-20) BUN (9-16) mg/dL Creatinine (0.5-1.4) mg/dL Estim Creat Clear Calc Estimated GFR Random Glucose (60-115) mg/dL Lactic Acid (0.5-2.0) mmol/L Calcium (8.4-10.2) mg/dL Total Bilirubin (0.0-1.0) mg/dL AST (5-31) U/L ALT (0-31) U/L Alkaline Phosphatase (39-117) U/L Total Protein (6.5-8.0) g/dL Albumin (3.5-5.0) g/dL Lipase (8-78) U/L Urine Color Yellow Urine Appearance Clear Urine pH 7.0 (5.0-9.0) Ur Specific [place] <= 1.005 (1.005-1.025) Urine Protein Negative (Neg-Trace) mg/dL Urine Glucose (UA) Negative (Negative) mg/dL Urine Ketones Negative (Negative) mg/dL Urine Blood Negative (Negative) Urine Nitrite Negative (Negative) Ur Leukocyte Esterase Negative (Negative) <WINSTON Matos - Last Filed: 10/05/22 21:53> Independent Interpretation I performed an independent interpretation of an: CT Scan <WINSTON Matos - Last Filed: 10/05/22 21:53> Radiology Impression Discussion of test interpretation with radiology: I have reviewed the radiologist's reading. <WINSTON Matos - Last Filed: 10/05/22 21:53> Core Measures AMI core measures followed: Yes <WINSTON Matos - Last Filed: 10/05/22 21:53> Measure exclusions: not indicated <WINSTON Matos Last Filed: 10/05/22 21:53> Medications Administered Discontinued Medications Generic Name Dose Route Start Last Admin Trade Name Freq PRN Reason Stop Dose Admin Hydroxyzine HCl 25 mg 10/05/22 20:13 10/05/22 20:25 Hydroxyzine Hcl 25 Mg Tablet PO 10/05/22 20:14 25 mg ONCE ONE Administration Metronidazole 500 mg in 100 mls @ 100 mls/hr 10/05/22 19:48 10/05/22 20:24 Flagyl IV 10/05/22 20:47 100 mls/hr ONCE ONE Administration Levofloxacin 750 mg in 150 mls @ 100 mls/hr 10/05/22 19:48 10/05/22 20:24 Levaquin IV 10/05/22 21:17 100 mls/hr ONCE ONE Administration Sodium Chloride 1,000 mls @ 999 mls/hr 10/05/22 20:00 10/05/22 20:24 Ns IV 10/05/22 21:00 999 mls/hr .Q1H1M ADINA Administration Iohexol 100 ml 10/05/22 20:52 10/05/22 20:52 Iohexol 350 Mg/Ml 100 Ml Infus..Btl IV 10/05/22 20:53 85 ml ONCE ONE Administration Ketorolac Tromethamine 15 mg 10/05/22 20:14 10/05/22 20:25 Ketorolac Tromethamine 15 Mg/Ml Vial IVPUSH 10/05/22 20:15 15 mg ONCE ONE Administration <Vi Hamilton, BIOSTATISTICS DIRECTOR - Last Filed: 10/05/22 18:33> Medications Administered Discontinued Medications Generic Name Dose Route Start Last Admin Trade Name Caliq PRN Reason Stop Dose Admin Hydroxyzine HCl 25 mg 10/05/22 20:13 10/05/22 20:25 Hydroxyzine Hcl 25 Mg Tablet PO 10/05/22 20:14 25 mg ONCE ONE Administration Metronidazole 500 mg in 100 mls @ 100 mls/hr 10/05/22 19:48 10/05/22 20:24 Flagyl IV 10/05/22 20:47 100 mls/hr ONCE ONE Administration Levofloxacin 750 mg in 150 mls @ 100 mls/hr 10/05/22 19:48 10/05/22 20:24 Levaquin IV 10/05/22 21:17 100 mls/hr ONCE ONE Administration Sodium Chloride 1,000 mls @ 999 mls/hr 10/05/22 20:00 10/05/22 20:24 Ns IV 10/05/22 21:00 999 mls/hr .Q1H1M ADINA Administration Iohexol 100 ml 10/05/22 20:52 10/05/22 20:52 Iohexol 350 Mg/Ml 100 Ml Infus..Btl IV 10/05/22 20:53 85 ml ONCE ONE Administration Ketorolac Tromethamine 15 mg 10/05/22 20:14 10/05/22 20:25 Ketorolac Tromethamine 15 Mg/Ml Vial IVPUSH 10/05/22 20:15 15 mg ONCE ONE Administration <WINSTON Matos - Last Filed: 10/05/22 21:53> Critical Care Time Critical Care Time Critical Care Time: No <WINSTON Matos - Last Filed: 10/05/22 21:53> Discharge Plan Discharge Clinical Impression: Lower abdominal pain, Acute hypokalemia, Diarrhea, Left against medical advice <Vi Hamilton CNP - Last Filed: 10/05/22 18:33> Patient Disposition: Home, Self-Care <Vi Hamilton CNP - Last Filed: 10/05/22 18:33> Instructions: Hypokalemia (ED), Abdominal Pain (ED), Against Medical Advice (ED) <Vi Hamilton CNP - Last Filed: 10/05/22 18:33> Additional Instructions: Take your medications as prescribed. If you were prescribed antibiotics t gaudencio, it is important that you take your medication to their entirety, do not skip any doses, do not finish them early. Follow-up with your primary care provider this week. Follow-up with gastroenter ology Return to the emergency department with new or worsening symptoms. Such as fevers, chills, chest pain, shortness of breath, nausea, vomiting, dizziness, headache, vision changes, lethargy In case of emergency call 911 You refused stool studies. Your potassium was noted to be low 3.1, your given oral potassium but refused to stay for repeat potassium. Follow up with PCP for repeat labs Risks of leaving against medical advice include cardiac arrhythmia, , stroke, heart attack, worsening condition, untreated condition CT/CT abdomen pelvis w IV con IMPRESSION: Chronic appearing and postoperative changes as described. I do not appreciate any acute intra-abdominal process. ? <Vi Hamilton CNP - Last Filed: 10/05/22 18:33> Prescriptions: New loperamide [Anti-Diarrheal (loperamide)] 2 mg capsule 2 mg PO Q6H PRN (Reason: loose stool) Qty: 30 0RF No Action celecoxib 100 mg capsule 100 mg PO BID PRN (Reason: pain) 30 Days Qty: 60 0RF cyanocobalamin (vitamin B-12) [Vitamin B-12] 1,000 mcg Tablet Extended Release 1,000 mcg PO DAILY B Complex Tablet Extended Release 1 tab PO DAILY cetirizine [Zyrtec] 10 mg Tablet 10 mg PO DAILY folic acid 400 mcg Tablet 0.4 mg PO DAILY ferrous sulfate 325 mg (65 mg iron) Tablet 325 mg PO DAILY cholecalciferol (vitamin D3) [Vitamin D3] 125 mcg (5,000 unit) Tablet 125 mcg PO DAILY biotin 5,000 mcg Tablet, Sublingual 5,000 mcg SUBLINGUAL DAILY multivitamin Tablet 1 tab PO DAILY clonazepam 1 mg tablet 0.5 mg PO DAILY propranolol 20 mg tablet 20 mg PO DAILY omeprazole 20 mg capsule,delayed release(DR/EC) 20 mg PO DAILY <Vi Hamilton CNP - Last Filed: 10/05/22 18:33> Referrals: Blanca Castaneda NP [Primary Care Provider] - 2 days Ana M Valles MD [Physician] - 2 days <Vi Hamilton CNP - Last Filed: 10/05/22 18:33> Stand Alone Forms: Against Medical Advice, Work/School Release <Vi Hamilton CNP - Last Filed: 10/05/22 18:33>
[2022-10-05 18:31] VITALS: BP 157/102; PULSE 104; RESP 18; TEMP 37.1; O2SAT 96; BMI 24.4
[2022-10-05 18:46] LABS: MANUAL DIFF FLAG NO
[2022-10-05 18:54] LABS: Basophils Percent Auto 0.6 % (0-2); Eosinophils Absolute Auto 0.1 X10*3/uL (0.0-0.4); Eosinophils Percent Auto 0.7 % (0-4); Hemoglobin 12.7 g/dl (12.0-16.0); Imm Gran Abs Auto 0.02 X10*3/uL (0.00-0.03); Imm Gran Pct Auto 0.3 % (0.0-0.4); Lymphocytes Absolute Auto 2.2 X10*3/uL (1.2-4.9); Lymphocytes Percent Auto 30.4 % (20-40); Mean Corpuscular HGB Conc 34.3 g/dl (31.0-35.0); Mean Corpuscular Hemoglobin 33.9 pg (27.0-33.0); Mean Corpuscular Volume 98.7 fL (80.0-98.0); Mean Platelet Volume 8.9 fL (9.4-12.3); Monocytes Absolute Auto 0.8 X10*3/uL (0.1-1.2); Monocytes Percent Auto 10.6 % (2-11); Neutrophils Absolute Auto 4.1 x10*3/uL (2.0-8.3); Neutrophils Percent Auto 57.4 % (45-73); Platelet Count 211 X10*3/uL (160-400); Red Blood Count 3.75 X10*6/uL (4.20-5.50); Red Cell Distribution Width 12.9 % (11.0-16.0); White Blood Count 7.1 X10*3/uL (4.8-10.8)
[2022-10-05 19:10] LABS: Alanine Aminotransferase 85 U/L (0-31); Albumin Level 4.3 g/dL (3.5-5.0); Alkaline Phosphatase 125 U/L (39-117); Anion Gap 15 (12-20); Aspartate Amino Transferase 148 U/L (5-31); Bilirubin Total 0.6 mg/dL (0.0-1.0); Blood Urea Nitrogen 3 mg/dL (9-16); Calcium 9.4 mg/dL (8.4-10.2); Carbon Dioxide 22 mmol/L (22-29); Chloride 103 mmol/L (96-108); Creatinine Clr Calc Pharmacy 86.5; Estimated Glomerular Filt Rate > 60; Glucose Random 116 mg/dL (60-115); Lipase 25 U/L (8-78); Potassium 3.1 mmol/L (3.3-5.1); Sodium 137 mmol/L (135-145); Total Protein 7.7 g/dL (6.5-8.0)
[2022-10-05 19:20] LABS: Lactic Acid 2.2 mmol/L (0.5-2.0)
[2022-10-05 20:22] VITALS: BP 151/89; PULSE 82; RESP 16; TEMP 37.1; O2SAT 98
[2022-10-05] MEDS: levoFLOXacin/D5W 750 MG/150 ML PIGGYBACK 100 MG IV (20:24)
[2022-10-05] MEDS: 0.9 % Sodium Chloride 1,000 ML 999 ML IV (20:24)
[2022-10-05] MEDS: metroNIDAZOLE/NS 500 MG/100 ML PIGGYBACK 100 MG IV (20:24)
[2022-10-05] MEDS: hydrOXYzine HCL 25 MG TABLET PO (20:25)
--- NOTE | 2022-10-05 20:26 | MHC.EDTECH ---
pt 2000 rounding done ,vitals sign taken ,urine sample collected and sent to lab .
[2022-10-05 20:43] LABS: Appearance Urine Clear; Color Urine Yellow; Glucose Urine UA Negative (Negative); Leukocyte Esterase Urine Negative (Negative); Nitrite Urine Negative (Negative); Specific Gravity - Urine <= 1.005 (1.005-1.025); Urine Blood Negative (Negative); Urine Ketones Negative (Negative); Urine Protein Negative (Neg-Trace)
[2022-10-05 20:45] LABS: Reflex Lactate? Lactic Acid Added
[2022-10-05] MEDS: iohexoL 350 MG/ML 100 ML INFUS..BTL IV (20:52)
--- NOTE | 2022-10-05 21:00 | PC.NURSE ---
after admin of atarax, seemed to help with pt's agitation pt still desires to leave juani does not desire to finish antibx
[2022-10-05] MEDS: Potassium Chloride Packet 20 MEQ PACKET 40 MEQ PO (21:51)
[2022-10-05 22:00] VITALS: BP 160/103; PULSE 80; RESP 19; TEMP 36.7; O2SAT 98
--- NOTE | 2022-10-05 22:12 | PC.NURSE ---
pt leaving AMA, levoflaxacin not complete only 100 out of 150 mL infused, 400 out of 1000 mL NS infused, flagyl infused to completion
--- NOTE | 2022-10-05 22:14 | PC.NURSE ---
assumed care of pt at 1932 aox4 pt agitated states she feels she wants to crawl out of her own skin mentioned she is an employee in [employer] and has been here for over 20+ years pt's s/o at bedside
--- NOTE | 2022-10-05 22:18 | PC.NURSE ---
Pt left AMA, discharge instructions given/explained, pt left with s/o, ambulates safely/independently, no apparent distress, no sob, can speak in full sentences, IV cath tip intact upon removal
== END 2022-10-05 22:17 | disposition home or self-care (01) ==
PROVIDERS: Nurse Practitioner Family; Emergency Provider Emergency Medicine; PCP Nurse Practitioner Family
DX: K57.32 Diverticulitis of large intestine without perforation or abscess without bleeding (principal); E87.6 Hypokalemia; F17.210 Nicotine dependence, cigarettes, uncomplicated; Z71.6 Tobacco abuse counseling; Z79.899 Other long term (current) drug therapy
CPT/HCPCS: 36415; 74177; 80053; 81003; 83605; 83690; 85025; 96365; 96375; 99284; 99285; J1885; J1956; Q9967

== ENCOUNTER → 2022-11-03 14:51 | Outpatient (BNVA) | payer OTHER, SELFPAY | PROVIDERS: PCP Nurse Practitioner Family; Visit Provider Internal Medicine | DX: Z13.89 Encounter for screening for other disorder (principal) ==

== ENCOUNTER 2022-11-04 07:55 | Outpatient (REF) | payer OTHER, SELFPAY ==
--- NOTE | 2022-11-04 08:00 | EMG_ITS ---
Bilateral tibial and peroneal motor studies were performed. Bilateral superficial peroneal, sural, and medial and lateral plantar sensory studies were performed. Tibial H reflexes were obtained and paraspinal muscles were tested with a needle. 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 MD GAETANO Black/TAZ / [id number]
== END 2022-11-04 07:56 | disposition home or self-care (01) ==
LOC: HO.NEURO 07:55
PROVIDERS: PCP Nurse Practitioner Family; Visit Provider Nurse Practitioner Family
DX: G72.9 Myopathy, unspecified (principal); M54.9 Dorsalgia, unspecified; M79.602 Pain in left arm; M79.601 Pain in right arm
CPT/HCPCS: 95886; 95913

== ENCOUNTER → 2022-11-16 13:23 | Outpatient (BNVA) | payer OTHER, SELFPAY | PROVIDERS: PCP Nurse Practitioner Family; Visit Provider Nurse Practitioner Family | DX: Z13.89 Encounter for screening for other disorder (principal) ==

== ENCOUNTER → 2023-01-19 14:26 | Outpatient (BNVA) | payer OTHER, SELFPAY | PROVIDERS: PCP Nurse Practitioner Family; Visit Provider Internal Medicine ==

== ENCOUNTER 2023-02-16 14:32 | Outpatient (REF) | payer OTHER, SELFPAY ==
[2023-02-16 16:35] LABS: Magnesium 1.6 mg/dL (1.6-2.6)
[2023-02-16 17:18] LABS: Folate > 20.0 ng/mL (> or = 4.0); Vitamin B12 > 2000 pg/mL (200-900)
[2023-02-22 17:59] LABS: Vitamin D 25-OH, D2 <4 ng/mL; Vitamin D 25-OH, D3 82 ng/mL; Vitamin D 25-OH, Total 82 ng/mL (30-100)
[2023-02-23 15:19] LABS: Prot Elec - Albumin 4.1 g/dL (3.8-4.8); Prot Elec - Alpha1 0.3 g/dL (0.2-0.3); Prot Elec - Alpha2 0.9 g/dL (0.5-0.9); Prot Elec - Beta 1 0.5 g/dL (0.4-0.6); Prot Elec - Beta 2 0.4 g/dL (0.2-0.5); Prot Elec - Gamma 1.1 g/dL (0.8-1.7); Prot Elec - Total Protein 7.3 g/dL (6.1-8.1)
[2023-02-24 03:24] LABS: Alpha-Tocopherol 22.1 mg/L (5.7-19.9); Beta-Gamma Tocopherol 1.2 mg/L (<=4.3)
== END 2023-02-16 14:33 | disposition home or self-care (01) ==
LOC: HO.LAB 14:32
PROVIDERS: Absent Provider Nurse Practitioner Family; PCP Nurse Practitioner Family; Visit Provider Internal Medicine
DX: D64.9 Anemia, unspecified (principal); G62.89 Other specified polyneuropathies; G72.9 Myopathy, unspecified
CPT/HCPCS: 36415; 82306; 82550; 82607; 82746; 83735; 84165; 84446

== ENCOUNTER 2023-02-22 10:47 | Outpatient (AMB) | payer OTHER, SELFPAY ==
[2023-02-22 10:50] VITALS: BP 114/82; PULSE 86; O2SAT 98; BMI 23.3
--- NOTE | 2023-02-22 10:50 | MHC.OFFVIS ---
Intake Vital Signs 02/22/23 10:50 Height 5 ft Weight 119 lb 2 oz BMI 23.3 BP 114/82 Blood Pressure Location Lt brachial Position Sitting Pulse 86 Pulse Source Pulse Oximeter Pulse Oximetry (%) 98 Oxygen Delivery Method Room Air Intake Visit Reasons: 3 follow up myopathy Intake Note: Pt presents as a 3 month f/u for Myopathy. pt states she is doing alot better. She hasn't been having the pain in the legs and her feet like she was having. Pt Is unsure what to attribute that to. 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 Pt denies any significant interval medical changes. Pt reports her leg pain has been much better. Her legs may feel a bit achey or generalized weakness- at the end of the day or on a more hot/humid day. She has stopped taking Ibuprofen 600mg frequently- has swtched to prn Celebrex per her GI recomendation d/t GI issues. She recently had f/u serum PEP- results pending. She has not done UPAP 24 hr urine yet Recent B-12- > 2,000 and was advised to stop her b-12 supplement- she has stopped but continues on her daily vit B complex. [facility] Medical History Acute diverticulitis Anemia Encounter for testing for latent tuberculosis infection Hypertension Intestinal perforation Migraine Perianal abscess Surgical History History of appendix removal History of colon resection History of colostomy reversal History of drainage of abscess History of esophagogastroduodenoscopy (EGD) History of eye surgery Hx of colonoscopy Family History Maternal Grandfather Lung cancer Maternal Grandmother Stomach cancer Father Diabetes Cardiac arrest Social History (Updated 02/22/23 @ 11:04 by Za Fischer CMA) Household Members: Significant Other and Children Housing: House Are you a primary healthcare financial analyst to a significant other at home: No Do you presently have visiting nurse or other home services: No Alcohol intake: current Alcohol intake frequency: a few times a month Patient Tobacco Use Status: Current someday Tobacco user Tobacco use type: Cigarette service: No Current occupational status: employed Current [place] [employer] [place] Review of Systems Const All systems reviewed & are unremarkable except as noted in HPI and below Physical Exam Vital Signs: Last Vital Signs Pulse 86 02/22/23 10:50 BP 114/82 02/22/23 10:50 Pulse Ox 98 02/22/23 10:50 Oxygen Delivery Method Room Air 02/22/23 10:50 BMI result Body Mass Index 23.3 Const General: cooperative and no acute distress Orientation/consciousness: patient oriented x3 HEENT Head: Yes normocephalic Resp Effort & Inspection: normal respiratory effort and able to speak in complete sentences Neuro General: patient oriented x3, gait normal and CN's II-XI intact bilaterally Cognition (Neuro): normal cognition Motor exam (neuro): 5/5 motor strength present throughout Psych Appearance: grossly normal Mental Status: mental status grossly normal Speech and movement: Normal speech and movement present Affect: normal affect Attitude: cooperative Thought process: Normal thought process present Thought content: Normal thought content present Insight: Good insight present (Psych) Judgement: Good judgement present (Psych) Assessment & Plan Assessment & Plan (1) Axonal sensorimotor neuropathy: Comment: BLE mild-mod, more so in feet than legs (BLE EMG/NCS October 2022) Code(s): G62.89 - Other specified polyneuropathies (2) Myopathy: Code(s): G72.9 - Myopathy, unspecified Plan Review SPEP, vit E, vit D, etc- when available May hold UPEP for now- as pt is feeling better. Hold l-spine XR. Future considerations- further axonal sensorimotor neuropathy work-up. F/u in 4-6 months or sooner prn. Coding Level of Care Code Est Pt Level 4 (83144) Diagnoses Axonal sensorimotor neuropathy G62.89 Myopathy G72.9
== END 2023-02-22 11:42 | disposition home or self-care (01) ==
PROVIDERS: Visit Provider Nurse Practitioner Family
DX: G62.89 Other specified polyneuropathies (principal); G72.9 Myopathy, unspecified
CPT/HCPCS: 99214

== ENCOUNTER → 2023-02-22 10:47 | Outpatient (BNVA) | payer OTHER, SELFPAY | PROVIDERS: Visit Provider Nurse Practitioner Family ==

== ENCOUNTER 2023-02-23 09:50 | Outpatient (AMB) | payer OTHER, SELFPAY ==
--- NOTE | 2023-02-23 09:50 | A.OFFVIS_ITS ---
Intake Intake Visit Reasons: 1 month follow up Intake Note: Kelli presents as a video she states that she is unable to feel better. CC: She states that her enema was refilled and she wants to know if she should be taking it still and she has questions regarding the Folic Acid and b12. Allergies morphine Allergy (Unknown, Verified 02/22/23 10:57) redness HPI HPI Comments History of Present Illness Details This is a 47-year-old female past medical history of complicated diverticulitis status post segmental colon resection followed by reversal of colostomy in 2019, appendectomy 2013, ongoing workup for myositis, who is following up for diverticular disease. Initial visit 06/14/22: History obtained from the patient, who states that main gastrointestinal complaint is postprandial urge to defecate infrequent diarrhea. She also has longstanding history of heartburn, and is on omeprazole. Denies any nausea, vomiting, unintentional weight loss, blood in stool. She is perimenopausal, does not get her periods she has a hormonal IUD. From chart review, patient developed severe anemia in early 2018 around her surgeries. This gradually improved by January 2019. Nine, she had routine labs done when she establish with a new PCP or earlier this year, that showed hemoglobin of 9 with high iron binding capacity and low iron saturation. No family history of colon cancer or inflammatory bowel disease. Patient has never had an endoscopy done. Of note, also noted to have elevated LFTs with AST > ALT. Patient reports drinking 2-3 etOH drinks per day. No previous history of IV drug use. No family history of liver diseases. Hep B surface antigen hep C antibody negative per labs. 08/05/22: EGD/colo: Normal esophagus Normal stomach (biopsy) Normal duodenum (biopsy) Abnormal rectal mucosa (biopsy) Diverticulosis Internal hemorrhoids Surgical anastomosis Path: A. Duodenum, biopsy: Chronic inactive duodenitis. B. Stomach, biopsy: Reactive gastropathy with background mild chronic active inflammation; no Helicobacter organisms seen. C. Colon, right, biopsy: Colonic mucosa within normal limits. D. Colon, left, biopsy: Colonic mucosa within normal limits. E. Rectum, biopsy: Rectal mucosa within normal limits. 11/03/22: Patient had call last month for recurrent lower abdominal cramping associated with diarrhea. Was worried about repeat diverticulitis. CT abdomen and pelvis at that time did not show any acute changes in the colon to include divert iculitis. She had then called again a 2nd time 10 days ago for similar symptoms. Was prescribed Levsin by on-call fast food restaurant manager. Today, reports that has more or less been miserable for almost 4 weeks. Levsin helped minimally. Main complaint is severe left sided cramping assoc with multiple loose stools everyday. Defecation is assoc with severe pain in rectum that seems to radiate across her perineum to her vagina. This occurs without straining or blood in stool. 01/19/23: Reports excellent relief of abd cramping with Rifaximin however has persistent diarrhea. Goes up to 5-6 times a day, kylie after meals. While defecating has severe, sharp pain in her perineum/rectum. Levsin helps most of the times. 02/23/23: Seen as televisit as per her request. Reports continued abd pain, cramping and diarrhea. More manageable now since completing mesalamine enemas. Has not been keeping track of BMs so unable to objectively report improvement. Also taking Levsin PRN. Also reviewed elevated LFTs - labs were ordered last year when pt was first seen by me however got missed as has had to see multiple providers including neurology. [facility] Medical History Acute diverticulitis Anemia Encounter for testing for latent tuberculosis infection Hypertension Intestinal perforation Migraine Perianal abscess Surgical History History of appendix removal History of colon resection History of colostomy reversal History of drainage of abscess History of esophagogastroduodenoscopy (EGD) History of eye surgery Hx of colonoscopy Family History Maternal Grandfather Lung cancer Maternal Grandmother Stomach cancer Father Diabetes Cardiac arrest Social History Household Members: Significant Other and Children Housing: House Are you a primary care support representative to a significant other at home: No Do you presently have visiting nurse or other home services: No Alcohol intake: current Alcohol intake frequency: a few times a month Patient Tobacco Use Status: Current someday Tobacco user Tobacco use type: Cigarette service: No Current occupational status: employed Current occupation: [employer] [place] Review of Systems Const All systems reviewed & are unremarkable except as noted in HPI and below Physical Exam Vital Signs: video visit: NAD, nontoxic appearing able to speak in full sentences no dysarthria or dysphasia Assessment & Plan Assessment & Plan (1) Diverticular disease of colon: Code(s): K57.30 - Diverticulosis of large intestine without perforation or abscess without bleeding (2) Abdominal pain: Code(s): R10.9 - Unspecified abdominal pain (3) Diarrhea: Code(s): R19.7 - Diarrhea, unspecified Plan Sx most likely secondary to SUDD vs IBS-D. Between rifaximin and mesalamine, appeared to have had a better response to mesalamine. Advised to keep a refill at home, and to use it as needed for flares . In terms of LFTs, will recheck as they were last noted to be elevated in September with AST>ALT. Pt does report drinking 1-2 glasses on a frequent basis. Chronic hep negative from 2021 however given elevated IgG earlier this year, will check autoimmune panel. US ABd has also been ordered. Plan: - Mesalamine 4g enema DE at bedtime x 4 weeks as needed in future - Cont fiber supplementation - Ok to take Levsin PRN for symptomatic management. - Labs ordered for elevated LFTs work up as below. Pt states she will get these done in a week's time. Follow up in 2 months Orders: Orders Liver Panel 02/23/23 R79.89 - Other specified abnormal findings of blood chemistry Prothrombin Time INR 02/23/23 R7.89 - Other specified abnormal findings of blood chemistry Liver Kidney Microsomal Ab 02/23/23 R7.89 - Other specified abnormal findings of blood chemistry Smooth Muscle Antibody 02/23/23 R7.89 - Other specified abnormal findings of blood chemistry Phosphatidylethanol, Blood 02/23/23 R7.89 - Other specified abnormal findings of blood chemistry US abdomen complete 02/23/23 R7. - Other specified abnormal findings of blood chemistry Telehealth Telehealth Location of provider rendering services: practice address Location of patient: address on file Patient Identification confirmed using: Name, : Yes Telehealth method: video Patient verbally consented to treatment: Yes Patient verbally consented to billing insurance company: Yes Patient informed of any privacy concerns related to visit: Yes Minutes spent on Phone/Video with Pt.: 20 Coding Level of Care Code Tele Est Pt Level 4 (99324) Diagnoses Diverticular disease of colon K57.30 Abdominal pain R10.9 Diarrhea R19.7
== END 2023-02-23 12:53 | disposition home or self-care (01) ==
LOC: HO.HGI 09:50
PROVIDERS: PCP Nurse Practitioner Family; Visit Provider Internal Medicine
DX: K57.30 Diverticulosis of large intestine without perforation or abscess without bleeding (principal); R10.9 Unspecified abdominal pain; R19.7 Diarrhea, unspecified
CPT/HCPCS: 99214

== ENCOUNTER → 2023-02-23 09:50 | Outpatient (BNVA) | payer OTHER, SELFPAY | PROVIDERS: PCP Nurse Practitioner Family; Visit Provider Internal Medicine ==

== ENCOUNTER 2023-05-04 14:27 | Outpatient (REF) | payer OTHER, SELFPAY ==
[2023-05-04 15:20] LABS: Prothrombin Time 12.3 SEC (11.1-13.3)
[2023-05-04 15:40] LABS: Alanine Aminotransferase 43 U/L (0-31); Albumin Level 4.3 g/dL (3.5-5.0); Alkaline Phosphatase 101 U/L (39-117); Aspartate Amino Transferase 67 U/L (5-31); Bilirubin Direct 0.1 mg/dL (0.0-0.5); Bilirubin Total 0.5 mg/dL (0.0-1.0)
[2023-05-10 22:58] LABS: Liver Kidney Microsomal Ab <=20.0 U (<=20.0)
[2023-05-11 08:31] LABS: Phosphatidylethanol 16:0-18:1 >400 (H)
[2023-05-11 08:32] LABS: Phosphatidylethanol 16:0-18:2 >400 (H)
[2023-05-12 16:24] LABS: Smooth Muscle Antibody <20 U (<20)
== END 2023-05-04 14:28 | disposition home or self-care (01) ==
LOC: HO.LAB 14:27
PROVIDERS: PCP Nurse Practitioner Family; Visit Provider Internal Medicine
DX: R79.89 Other specified abnormal findings of blood chemistry (principal)
CPT/HCPCS: 36415; 80076; 80321; 85610; 86015; 86376

== ENCOUNTER 2023-05-10 10:53 | Outpatient (AMB) | payer OTHER, SELFPAY ==
--- NOTE | 2023-05-10 10:55 | A.OFFVIS_ITS ---
Intake Vital Signs 05/10/23 10:57 Height 5 ft Weight 122 lb 2.177 oz BMI 23.9 BP 141/77 H Blood Pressure Location Rt brachial Position Sitting Pulse 70 Intake Visit Reasons: Colitis Intake Note: Patient presents to in office visit today in follow up of colitis and blood work. CC: Patient reports she will have the US done at [facility] in [place]. She reports she has been doing fairly good . Allergies morphine Allergy (Unknown, Verified 05/10/23 11:00) redness HPI HPI Comments History of Present Illness Details This is a 47-year-old female past medical history of complicated diverticulitis status post segmental colon resection followed by reversal of colostomy in 2019, appendectomy 2013, ongoing workup for myositis, who is following up for diverticular disease. Initial visit 06/14/22: History obtained from the patient, who states that main gastrointestinal complaint is postprandial urge to defecate infrequent diarrhea. She also has longstanding history of heartburn, and is on omeprazole. Denies any nausea, vomiting, unintentional weight loss, blood in stool. She is perimenopausal, does not get her periods she has a hormonal IUD. From chart review, patient developed severe anemia in early 2018 around her surgeries. This gradually improved by January 2019. Nine, she had routine labs done when she establish with a new PCP or earlier this year, that showed hemoglobin of 9 with high iron binding capacity and low iron saturation. No family history of colon cancer or inflammatory bowel disease. Patient has never had an endoscopy done. Of note, also noted to have elevated LFTs with AST > ALT. Patient reports drmargarito sandoval 2-3 etOH drinks per day. No previous history of IV drug use. No family history of liver diseases. Hep B surface antigen hep C antibody negative per labs. 08/05/22: EGD/colo: Normal esophagus Normal stomach (biopsy) Normal duodenum (biopsy) Abnormal rectal mucosa (biopsy) Diverticulosis Internal hemorrhoids Surgical anastomosis Path: A. Duodenum, biopsy: Chronic inactive duodenitis. B. Stomach, biopsy: Reactive gastropathy with background mild chronic active inflammation; no Helicobacter organisms seen. C. Colon, right, biopsy: Colonic mucosa within normal limits. D. Colon, left, biopsy: Colonic mucosa within normal limits. E. Rectum, biopsy: Rectal mucosa within normal limits. 11/03/22: Patient had call last month for recurrent lower abdominal cramping associated with diarrhea. Was worried about repeat diverticulitis. CT abdomen and pelvis at that time did not show any acute changes in the colon to include diverticulitis. She had then called again a 2nd time 10 days ago for similar symptoms. Was prescribed Levsin by on-call poultry veterinarian. Today, reports that has more or less been miserable for almost 4 weeks. Levsin helped minimally. Main complaint is severe left sided cramping assoc with multiple loose stools everyday. Defecation is assoc with severe pain in rectum that seems to radiate across her perineum to her vagina. This occurs without straining or blood in stool. 01/19/23: Reports excellent relief of abd cramping with Rifaximin however has persistent diarrhea. Goes up to 5-6 times a day, kylie after meals. While defecating has severe, sharp pain in her perineum/rectum. Levsin helps most of the times. 02/23/23: Seen as televisit as per her request. Reports continued abd pain, cramping and diarrhea. More manageable now since completing mesalamine enemas. Has not been keeping track of BMs so unable to objectively report improvement. Also taking Levsin PRN. Also reviewed elevated LFTs - labs were ordered last year when pt was first seen by me however got missed as has had to see multiple providers including neurology. 05/10/23: Has been doing very well from her bowels standpoint. Takes bentyl proactively. Also takes mesalamine enemas as soon as she starts getting diarrhea with cramping which resolves her sx within 1-2 nights. More recently has been noticing RUQ pain kylie postprandially. Happens particularly after greasy/fatty meal. US Abd still pending, plans to get it done through [facility]. Discussed LFT results. Better than before. AIH serology and PETH still pending but pt reports she has been cutting down on etOH intake. [facility] Medical History Encounter for testing for latent tuberculosis infection Migraine Anemia Intestinal perforation Acute diverticulitis Perianal abscess Hypertension Surgical History History of esophagogastroduodenoscopy (EGD) Hx of colonoscopy History of colostomy reversal History of colon resection History of eye surgery History of appendix removal History of drainage of abscess Family History Maternal Grandfather Lung cancer Maternal Grandmother Stomach cancer Father Diabetes Cardiac arrest Social History Household Members: Significant Other and Children Housing: House Are you a primary career technical counselor to a significant other at home: No Do you presently have visiting nurse or other home services: No Alcohol intake: current Alcohol intake frequency: a few times a month Patient Tobacco Use Status: Current someday Tobacco user Tobacco use type: Cigarette service: No Current occupational status: employed Current occupation: [employer] Review of Systems Const All systems reviewed & are unremarkable except as noted in HPI and below Physical Exam Vital Signs: Last Vital Signs Pulse 70 05/10/23 10:57 BP 141/77 H 05/10/23 10:57 BMI result Body Mass Index 23.9 Gen appear: NAD HEENT: nonicteric, no cervical lymphadenopathy Chest: CTA CVS: Regular S1/S2 Abd: soft, nontender, nondistended, bowel sounds + Ext: no peripheral edema Neuro: A/Ox3, noted to move all extremities spontaneously Psych: interacting appropriately Results Reviewed Results Reviewed: Laboratory Tests 10/05/22 10/05/22 05/04/23 18:41 18:41 14:47 INR 1.0 Total Bilirubin 0.6 0.5 AST 148 H 67 H ALT 85 H 43 H Alkaline Phosphatase 125 H 101 Anti-Smooth Muscle Ab PEth 16:0/18.1 (POPEth) PEth 16:0/18.2 (PLPEth) PEth Interpretation Michelle/Kid Microsom Ab Int 05/04/23 14:47 INR Total Bilirubin AST ALT Alkaline Phosphatase Anti-Smooth Muscle Ab Pending PEth 16:0/18.1 (POPEth) Pending PEth 16:0/18.2 (PLPEth) Pending PEth Interpretation Pending Michelle/Kid Microsom Ab Int Pending Assessment & Plan Assessment & Plan (1) Abdominal pain: Code(s): R10.9 - Unspecified abdominal pain (2) Diverticular disease of colon: Code(s): K57.30 - Diverticulosis of large intestine without perforation or abscess without bleeding (3) Diarrhea: Code(s): R19.7 - Diarrhea, unspecified (4) Elevated LFTs: Code(s): R79.89 - Other specified abnormal findings of blood chemistry Plan 1. RUQ pain: Again reviewed importance of cutting down etOH. Will also review AIH serology when results available. Since has a temporality with food, kylie fatty food agree that GB should be looked at. She is looking to get her US Abd scheduled soon. Small bowel bx r/o celiac earlier this year. If US Abd shows sludge/stones, will proceed with gen surg referral 2. Changes in bowel habits Most consistent with SUDD vs IBS-D. Responds well to PRN bentyl and mesalamine enemas. 3. Elevated LFTs US Abd pending as above. Most likely due to etOH use given her report and AST:ALT ratio. Chronic hep negative from 2021 however given elevated IgG earlier this year, autoimmune p payal was ordered and results pending. Follow up in 4 months Coding Level of Care Code Est Pt Level 4 (00855) Diagnoses Abdominal pain R10.9 Diverticular disease of colon K57.30 Diarrhea R19.7 Elevated LFTs R79.89
[2023-05-10 10:57] VITALS: BP 141/77; PULSE 70; BMI 23.9
== END 2023-05-10 11:28 | disposition home or self-care (01) ==
PROVIDERS: PCP Nurse Practitioner Family; Visit Provider Internal Medicine
DX: R10.9 Unspecified abdominal pain (principal); K57.30 Diverticulosis of large intestine without perforation or abscess without bleeding; R19.7 Diarrhea, unspecified; R79.89 Other specified abnormal findings of blood chemistry
CPT/HCPCS: 99214

== ENCOUNTER → 2023-05-10 10:53 | Outpatient (BNVA) | payer OTHER, SELFPAY | PROVIDERS: PCP Nurse Practitioner Family; Visit Provider Internal Medicine ==

== ENCOUNTER 2023-07-11 12:37 | Outpatient (AMB) | payer OTHER, SELFPAY ==
[2023-07-11 13:03] VITALS: BP 106/70; PULSE 85; O2SAT 98
--- NOTE | 2023-07-11 13:03 | A.OFFVIS_ITS ---
Intake Vital Signs 07/11/23 13:03 Height 5 ft BP 106/70 Blood Pressure Location Rt brachial Position Sitting Pulse 85 Pulse Source Pulse Oximeter Pulse Oximetry (%) 98 Oxygen Delivery Method Room Air Intake Visit Reasons: 4m follow up myopathy-Confirmed Intake Note: Patient presents for follow up myopathy. everything is about the same Allergies morphine Allergy (Unknown, Verified 07/11/23 13:05) redness Medication List - Last Reconciled 07/11/23 by AGUILAR Ruvalcaba biotin 5,000 mcg sublingual DAILY celecoxib 100 mg PO BID PRN 30 days cetirizine (Zyrtec) 10 mg PO DAILY cholecalciferol (vitamin D3) (Vitamin D3) 125 mcg PO DAILY clonazepam 0.5 mg PO DAILY ferrous sulfate 325 mg PO DAILY folic acid 0.4 mg PO DAILY hyoscyamine sulfate 0.125 mg sublingual BID-QID PRN magnesium chloride (magnesium) PO DAILY multivitamin 1 tab PO DAILY omeprazole 20 mg PO DAILY propranolol 20 mg PO DAILY vitamin B complex ER 1 tab PO DAILY HPI HPI Comments History of Present Illness Details 48-yr-old female presents for f/u visit. Pt did have a mild self-limited case of Covid-19 2 weeks ago. She has stopped taking Ibuprofen. Since, she tried Celebrex, which she does not feel that it helps. She continues to have BLE soreness and aching. This can worse r/t working longer days or being on her feet more. She states she feels her legs are sore and tired, she needs to use her arms to hold onto when going up or down stairs, or to raise form a prolonged squat. She is usually more physically active in the summer- yardwork etc. She is not doing any scheduled exercise. She has had increased personal stress- r/t family health issues. Last Resulted Lab Tests 02/16/23 14:53 Albumin (PEP) 4.1 Vnhth-6-Nktmewihb 0.3 Zwhzd-4-Mmaztydoa 0.9 Zyat-4-Etporipx 0.5 Dnfb-8-Jsbvzfhs 0.4 Gamma Globulins 1.1 PEP Interpretation SEE NOTE Vitamin B12 > 2000 H 25-OH Vitamin D To jazmine 82 25-Hydroxy Vitamin D2 <4 Alpha-Tocopherol V it E 22.1 H B- and G-Tocophero l 1.2 Folate > 20.0 PFSH Medical History Encounter for testing for latent tuberculosis infection Migraine Anemia Intestinal perforation Acute diverticulitis Perianal abscess Hypertension Surgical History History of esophagogastroduodenoscopy (EGD) Hx of colonoscopy History of colostomy reversal History of colon resection History of eye surgery History of appendix removal History of drainage of abscess Family History Maternal Grandfather Lung cancer Maternal Grandmother Stomach cancer Father Diabetes Cardiac arrest Social History Household Members: Significant Other and Children Housing: House Are you a primary care aid to a significant other at home: No Do you presently have visiting nurse or other home services: No Alcohol intake: current Alcohol intake frequency: a few times a month Patient Tobacco Use Status: Current someday Tobacco user Tobacco use type: Cigarette service: No Current occupational status: employed [place]: [employer] [place] Review of Systems Const All systems reviewed & are unremarkable except as noted in HPI and below Physical Exam Vital Signs: Last Vital Signs Pulse 85 07/11/23 13:03 BP 106/70 07/11/23 13:03 Pulse Ox 98 07/11/23 13:03 Oxygen Delivery Method Room Air 07/11/23 13:03 Const General: cooperative and no acute distress Orientation/consciousness: patient oriented x3 HEENT Head: Yes normocephalic Resp Effort & Inspection: normal respiratory effort and able to speak in complete sentences Neuro General: patient oriented x3, gait normal and CN's II-XI intact bilaterally Cognition (Neuro): normal cognition Motor exam (neuro): 5/5 motor strength present throughout Deep tendon reflexes (DTR's): Right patellar reflex intensity grade: 2+ and Left patellar reflex intensity grade: 2+ Psych Appearance: grossly normal Mental Status: mental status grossly normal Speech and movement: Normal speech and movement present Affect: normal affect Attitude: cooperative Thought process: Normal thought process present Thought content: Normal thought content present Insight: Good insight present (Psych) Judgement: Good judgement present (Psych) Assessment & Plan Assessment & Plan (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 Trial OTC Nervive Nerve Relief- alpha-lipoic acid supplement. If ineffective, start Amitriptyline 10mg qhs. Future considerations- further axonal sensorimotor neuropathy work-up. F/u in 4-6 months or sooner prn. Medications: New amitriptyline 10 mg PO BEDTIME 30 days 30 tabs 3RF Coding Level of Care Code Est Pt Level 4 (19073) Diagnoses Axonal sensorimotor neuropathy G62.89 Myalgia, lower leg M79.18
== END 2023-07-11 13:59 | disposition home or self-care (01) ==
PROVIDERS: PCP Nurse Practitioner Family; Visit Provider Nurse Practitioner Family
DX: G62.89 Other specified polyneuropathies (principal); M79.18 Myalgia, other site
CPT/HCPCS: 99214

== ENCOUNTER → 2023-07-11 12:37 | Outpatient (BNVA) | payer OTHER, SELFPAY | PROVIDERS: PCP Nurse Practitioner Family; Visit Provider Nurse Practitioner Family ==

== ENCOUNTER 2024-01-09 12:53 | Outpatient (AMB) | payer OTHER, SELFPAY ==
--- NOTE | 2024-01-09 12:58 | A.OFFVIS_ITS ---
Vital Signs 01/09/24 12:59 Height 5 ft Weight 127 lb BMI 24.8 BP 104/72 Blood Pressure Location Rt brachial Position Sitting Pulse 79 Pulse Source Pulse Oximeter Pulse Oximetry (%) 97 Oxygen Delivery Method Room Air Intake Visit Reasons: 6 mo f/u- Myopathy-CONF Intake Note: Patient presents for 6 month follow up. patient still kind of in the same pace she was tried medication not sure if it's working or not. Allergies morphine Allergy (Unknown, Verified 01/09/24 13:03) redness Medication List - Last Reconciled 01/09/24 by AGUILAR Ruvalcaba amitriptyline 10 mg PO BEDTIME 30 days biotin 5,000 mcg sublingual DAILY celecoxib 100 mg PO BID PRN 30 days cetirizine (Zyrtec) 10 mg PO DAILY cholecalciferol (vitamin D3) (Vitamin D3) 125 mcg PO DAILY clonazepam 0.5 mg PO DAILY ferrous sulfate 325 mg PO DAILY folic acid 0.4 mg PO DAILY hyoscyamine sulfate 0.125 mg sublingual Q8-12H 90 days magnesium chloride (magnesium) PO DAILY mesalamine 4 grams (60 mL) SD BEDTIME PRN 30 days multivitamin 1 tab PO DAILY omeprazole 20 mg PO DAILY propranolol 20 mg PO DAILY vitamin B complex ER 1 tab PO DAILY HPI Comments Details: 48-yr-old female presents for f/u visit. Pt denies any significant interval medical changes. Pt did try Nervive Nerve Relief- but was not effective. She then recently started on Amitriptyline 10mg about 4-5 weeks ago. She has been taking the Amitriptyline 10mg most nights- overall tolerating well. She is having some days where her legs are more comfortable and other days have the stabbing pains in her legs. She notices the discomfort more when she is at work, as she is on her feet more. She can have pins and needles sensation in feet when she stands up in the am. She does have some achiness in her legs when she at home, but is better able to manage the pain- can sit down, rest. She cannot take a walk in the evening d/t the leg pain. Would like to be able to be more active. [facility] Medical History (Updated 01/09/24 @ 13:59 by AGUILAR Ruvalcaba) Encounter for testing for latent tuberculosis infection Migraine Anemia Intestinal perforation Acute diverticulitis Perianal abscess Hypertension Surgical History History of esophagogastroduodenoscopy (EGD) Hx of colonoscopy History of colostomy reversal History of colon resection History of eye surgery History of appendix removal History of drainage of abscess Family History Maternal Grandfather Lung cancer Maternal Grandmother Stomach cancer Father Diabetes Cardiac arrest Social History Household Members: Significant Other and Children Housing: House Are you a primary resident care aid to a significant other at home: No Do you presently have visiting nurse or other home services: No Alcohol intake: current Alcohol intake frequency: a few times a month Patient Tobacco Use Status: Current someday Tobacco user Tobacco use type: Cigarette service: No Current occupational status: employed Current occupation: [employer] – [place] Physical Exam Vital Signs: Last Vital Signs Pulse 79 01/09/24 12:59 BP 104/72 01/09/24 12:59 Pulse Ox 97 01/09/24 12:59 Oxygen Delivery Method Room Air 01/09/24 12:59 BMI result Body Mass Index 24.8 Const General: cooperative and no acute distress Orientation/consciousness: patient oriented x3 Resp Effort & Inspection: normal respiratory effort and able to speak in complete sentences Neuro General: patient oriented x3 Cranial nerves: Yes CN's II-XII intact bilaterally Cognition (Neuro): normal cognition Psych Appearance: grossly normal Mental Status: mental status grossly normal Speech and movement: Normal speech and movement present Affect: normal affect Attitude: cooperative Assessment & Plan Assessment & Plan (1) Myalgia, lower leg: Comment: BLE Code(s): M79.18 - Myalgia, other site Category: Medical (2) Axonal sensorimotor neuropathy: Comment: BLE mild-mod, more so in feet than legs (BLE EMG/NCS October 2022) Code(s): G62.89 - Other specified polyneuropathies Category: Medical (3) Paresthesia of both feet: Code(s): R20.2 - Paresthesia of skin Category: Medical Plan SPEP, vit E, vit D- NL May hold UPEP for now. Pt stopped OTC Nervive Nerve Relief- alpha-lipoic acid- ineffective. Continue Amitriptyline 10mg qhs x's a few more weeks, if not effective, may increase to 20mg qhs. Try adjusting her footwear- may try crocs when in home and more supportive walking sneakers while at work. Future considerations- further axonal sensorimotor neuropathy work-up. F/u in 6 months or sooner prn. Medications: Changed From amitriptyline 10 mg PO BEDTIME 30 days 30 tabs 3RF To amitriptyline 10 - 20 mg (1 - 2 x 10 mg) PO BEDTIME 30 days 60 tabs 6RF Coding Level of Care Code Est Pt Level 4 (92186) Diagnoses Myalgia, lower leg M79.18 Axonal sensorimotor neuropathy G62.89 Paresthesia of both feet R20.2
[2024-01-09 12:59] VITALS: BP 104/72; PULSE 79; O2SAT 97; BMI 24.8
== END 2024-01-09 13:56 | disposition home or self-care (01) ==
PROVIDERS: PCP Nurse Practitioner Family; Visit Provider Nurse Practitioner Family
DX: M79.18 Myalgia, other site (principal); G62.89 Other specified polyneuropathies; R20.2 Paresthesia of skin
CPT/HCPCS: 99214

== ENCOUNTER → 2024-01-09 12:53 | Outpatient (BNVA) | payer OTHER, SELFPAY | PROVIDERS: PCP Nurse Practitioner Family; Visit Provider Nurse Practitioner Family ==

== ENCOUNTER 2024-08-29 14:50 | Outpatient (AMB) | payer OTHER, SELFPAY ==
--- NOTE | 2024-08-29 14:52 | A.OFFVIS_ITS ---
Vital Signs 08/29/24 14:53 Height 5 ft Weight 135 lb 6 oz BMI 26.4 BP 118/80 Blood Pressure Location Rt brachial Position Sitting Pulse 87 Pulse Source Pulse Oximeter Pulse Oximetry (%) 96 Oxygen Delivery Method Room Air Intake Visit Reasons: Follow Up Allergies morphine Allergy (Unknown, Verified 08/29/24 14:56) redness Medication List - Last Reconciled 08/29/24 by AGUILAR Ruvalcaba amitriptyline 10 - 20 mg (1 - 2 x 10 mg) PO BEDTIME 30 days biotin 5,000 mcg sublingual DAILY celecoxib 100 mg PO BID PRN 30 days cetirizine (Zyrtec) 10 mg PO DAILY cholecalciferol (vitamin D3) (Vitamin D3) 125 mcg PO DAILY clonazepam 0.5 mg (1/2 x 1 mg) PO DAILY 30 days ferrous sulfate 325 mg PO DAILY folic acid 0.4 mg PO DAILY hyoscyamine sulfate 0.125 mg sublingual Q8-12H 90 days magnesium chloride (magnesium) PO DAILY mesalamine 4 grams (60 mL) NC BEDTIME PRN 30 days multivitamin 1 tab PO DAILY omeprazole 20 mg PO DAILY propranolol 20 mg PO TID 30 days vitamin B complex ER 1 tab PO DAILY HPI Comments Details: 48-yr-old female presents for f/u visit of BLE neuropathy, myalgia, paresthesia. Pt denies any significant interval medical changes. The pains in her legs has lessened. She did buy new walking sneakers, which she feels has been most helpful. She does continue on amitriptyline 20 mg q.h.s.-tolerating well. She has started to take a dietary turmeric/sarabjit/pepper supplement-for weight, but also general health. She has pins and needles in the bottom of her feet first thing in the morning, which takes a little bit to subside. The pain feels like an aching, tiredness, especially at the end of the day and she has been on her feet longer. She notes she has been gradually gaining weight, which he attributes to not being very physically active outside of work and opting for more high- calorie/convenience foods. However, wonders if this could be related to the amitriptyline dose. Notes that after work, she feels too tired to exercise. However, she has more of a morning person, and could see herself starting a morning exercise routine at home. [facility] Medical History Encounter for testing for latent tuberculosis infection Migraine Anemia Intestinal perforation Acute diverticulitis Perianal abscess Hypertension Surgical History History of esophagogastroduodenoscopy (EGD) Hx of colonoscopy History of colostomy reversal History of colon resection History of eye surgery History of appendix removal History of drainage of abscess Family History Maternal Grandfather Lung cancer Maternal Grandmother Stomach cancer Father Diabetes Cardiac arrest Social History Household Members: Significant Other and Children Housing: House Are you a primary hospice home care coordinator to a significant other at home: No Do you presently have visiting nurse or other home services: No Alcohol intake: current Alcohol intake frequency: a few times a month Patient Tobacco Use Status: Current someday Tobacco user Tobacco use type: Cigarette service: No Current occupational status: employed Current occupation: [employer] [place] Physical Exam Vital Signs: Last Vital Signs Pulse 87 08/29/24 14:53 BP 118/80 08/29/24 14:53 Pulse Ox 96 08/29/24 14:53 Oxygen Delivery Method Room Air 08/29/24 14:53 BMI result Body Mass Index 26.4 Const General: cooperative and no acute distress Orientation/consciousness: patient oriented x3 Resp Effort & Inspection: normal respiratory effort and able to speak in complete sentences Neuro General: patient oriented x3 Cranial nerves: Yes CN's II-XII intact bilaterally Cognition (Neuro): normal cognition Psych Appearance: grossly normal Mental Status: mental status grossly normal Speech and movement: Normal speech and movement present Affect: normal affect Attitude: cooperative Assessment & Plan Assessment & Plan (1) Myalgia, lower leg: Comment: BLE Code(s): M79.18 - Myalgia, other site Category: Medical (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 Continue Amitriptyline 20 mg qhs. Continue to wear supportive well fitting footwear. Advised to increase fruit and vegetable intake. Advise to increase regular physical activity, such as body weight exercises and stretching in the mornings. Future considerations- further axonal sensorimotor neuropathy work-up. F/u in 6 months or sooner prn. Coding Level of Care Code Est Pt Level 4 (17009) Diagnoses Myalgia, lower leg M79.18 Axonal sensorimotor neuropathy G62.89 Paresthesia of both feet R20.2
[2024-08-29 14:53] VITALS: BP 118/80; PULSE 87; O2SAT 96; BMI 26.4
--- OUTSIDE RECORDS SUMMARY | 2024-08-29 16:59 | XMS_ITS | Data Portability ---
[facility] Address [address] [place] [address] Care Team Providers Care General Maintenance Helper Name Role Phone MARLENE KRUGER OTHER YARON JOHNSON OTHER ALTAF HAY Neurologist RAMÓN MERLOS Primary Care Provider Assessment Encounter Date Assessment Date Assessment LastModified by Organization Details LastModified Time 01/24/2024 01/24/2024 Patient agreed t o this visit via a secure telehealth platform. Patient understands this is a scheduled visit and the usual procedures with regard to billing and confidentiality apply. Patient was notified that the provider [place] [facility] [place] location: [place] During the visit the patient? s medical history and medical record were reviewed. The patient was notified to call our office for worsening or urgent symptoms. Not available 01/24/2024 15:29:40 Plan of Treatment Reminders Order Date Submit Date Provider Last Modified By Organization Details Last Modified Time Details Appointments Procedur e, 2024 01:30P M [facility] Procedure Room Not available Not available Not available Procedur e, 2024 01:30P M WINSTON BUCHANAN Not available Not available Not available Procedur e, 2024 01:30P M [facility] Procedure Room Not available Not available Not available Lab pap, LB + HPV - Pap smear with HPVIs this patient taking hormones (y)? IF yes, what type? Mirena IUD 2023 024 [email or web address] [facility] (Pathology), [address] [place] [address], [id number], 12/27/2023 16:34:14 TSH, serum or plasma 2023 024 [facility], [address] [place] [address], [id number], 07/16/2024 14:13:47 ferritin , serum or plasma 2023 024 [facility], [address] [place] [address], [id number], 07/16/2024 12:28:09 CBC 2023 024 [facility], [address] [place] [address], [id number], 07/13/2024 15:34:55 FSH (follicl e-stimul ating hormone) , serum 2023 024 [facility], [address] [place] [address], [id number], 07/16/2024 12:28:07 lh (luteini zing hormone) , serum 2023 024 [facility], [address] [place] [address], [id number], 07/16/2024 12:28:08 vitamin B12, serum - pt wantis phone call about result, not portal 2023 024 [facility], [address] [place] [address], [id number], 08/07/2024 13:47:58 folate, serum 2023 024 [facility], [address] [place] [address], [id number], 08/07/2024 13:48:25 iron + total iron-bin ding capacity (TIBC), serum 2023 024 [facility], [address] [place] [address], [id number], 07/26/2024 15:15:48 Referral otolaryn gologist referral 2023 024 [email or web address] [address], [place], [address], 12/19/2023 14:36:19 Procedures None recorded . Surgeries None recorded . Imaging None recorded . Medication Orders clonazep am 1 mg tablet 2022 023 [email or web address] [id number], [address] [place], [address], 01/17/2024 12:37:53 omeprazo le 20 mg capsule, delayed release 2023 024 [facility], [address] [place] [address], [id number], 06/15/2024 15:50:00 CombiPat ch 0.05 mg-0.25 mg/24 hr transder mal 2023 024 [facility], [address] [place] [address], [id number], 07/23/2024 08:15:47 Vivelle- Dot 0.0375 mg/24 hr transder mal patch 2023 024 [facility], [address] [place] [address], [id number], 07/20/2024 17:21:45 Patient TargetsNo targets recorded. Patient Instructions Encounter Date Encounter Id Patient Instructions Last Modified By Organization Details Last Modified Time 12/16/2023 [id number] well visit, wome n 50 to 65: care instructions [email or web address] Not available 12/16/2023 12:39:55 06/15/2024 [id number] Assessment & Elma n Menopausal Symptoms Severe hot flashes multiple times daily, causing significant discomfort and affecting daily activities. No periods for ten years due to Mirena IUD. Unclear menopausal status due to Mirena. Discussed HRT options, including risks and benefits. Estrogen patch preferred for safety and ease of use, with lower stroke risk. Mirena may suffice for progesterone replacement. Discussed potential impact on hair thinning and abdominal bloating. - Order hormonal level testing - Prescribe estrogen patch (100 micrograms, twice a week) - Evaluate Mirena status and consider replacement or removal based on hormonal levels Gastroesophageal Reflux Disease (GERD) Long-term omeprazole use for GERD. Discussed risks of chronic use including dementia, pneumonia, osteoporosis, and nutritional deficiencies. Plan to wean off omeprazole. Discussed alternative management strategies including DGL plus supplement and Pepcid. - Continue omeprazole for two more weeks - Start DGL plus supplement (one daily with meals) - Add Pepcid (H2 juan carlos) twice a day - Wean omeprazole to every other day, then every three days - Discontinue Pepcid after omeprazole wean Migraine Prophylaxis Long-standing migraines managed with propranolol and clonazepam. Current neurologist managing. Discussed clonazepam use, potential dependency, and withdrawal symptoms. Consider gradual tapering. Patient prefers current regimen due to effective symptom control. - Continue propranolol and clonazepam as prescribed - Discuss gradual tapering of clonazepam (reduce by 10% per month) Bilateral Lower Extremity Neuropathy Bilateral lower extremity neuropathy managed with amitriptyline. Unclear efficacy of current treatment. - Continue amitriptyline as prescribed - Monitor symptoms and efficacy General Health Maintenance Discussion of smoking cessation and weight management. Overweight with significant abdominal bloating, possibly related to menopause. - Encourage smoking cessation - Discuss weight management strategies Follow-up - Follow up with hormonal level results - Monitor response to estrogen patch and adjust as needed - Evaluate need for Mirena replacement or removal based on hormonal status - Regular follow-up with neurologist for migraine and neuropathy management - Follow up with GI specialist for GERD management. roque Not available 06/15/2024 15:55:32 time spent 40 mi n with visit and with charting/ orders roque Not available 06/15/2024 17:27:52 07/20/2024 [id number] My Health To Do List Specific Analgesia Plan: {{Continue present regimen* Adjust dose of present analgesic Switch analgesics Add/Ad just concomitant therapy Discontin ue/taper off opioid therapy}} Specific Goals for next visit {{increase exercise* start stress management improv e sleeping start Yoga start TaiChi see therapist}}The patient is currently {{at* not at}} their goal of safe, stable use of narcotic pain medication to improve their functioning in life. Since the last visit there has been {{activity of concern no activity of concern*}}:{{# ov eruse of meds request for an early refill abuse of staff noncomplian ce with UDS or pill count requests abnormal UDS}} Patient today is {{at high risk at moderate risk at low risk*}} for {{abuse of meds* misuse of meds}}. Monitoring will include {{pill counts repeat UDS* closer follow-up with shorter scripts}}. Patients current goals of {{better sleep more activity* return to work return to school improved ADL's improved self care improved function in roles}} were discussed with patient, unlikelihood of 100% reduction in pain made clear. Patient has read narcotics contract and understands the properties of narcotic medication. Not available 07/19/2024 16:04:33 Reason for Referral Devulcanizer Head Referral fo r Tinnitus of left ear Referring Physician: Darlene Austin, Family Medicine, Encounter Date: 12/16/2023 Results Created Date Observation Date Name Description Value Unit Range Abnormal Flag Note LastModifiedBy Organization Detail LastModifiedTime 12/16/19 24 12/22/2023 PAP TEST path report [facility] [address] [place] [address] Lab Direc tor: Lindsay dodge MD DOPING SUPERVISOR Cytol ogy Repor t Acces stacie #: [id number] FINAL DIAGN OSIS A. PAP SMEAR (THIN PREP) CE: SPECI MEN ADEQU ACY: Satis facto ry for evalu ation ; trans forma tion zone prese nt. INTER PRETA TION: NEGAT CIRILO FOR INTRA EPITH ELIAL LESIO N OR MALIG SHALOM . This speci men was yvrose zed by the autom ated ThinP rep Imagi ng Syste m ([employer]. ) and the selec kermit field s were revie wed by a cytot regulo ortega t. Elect terri sandra Juliana d Out By: Asuncion Tucker er, CT( CP) The Pap test is a scree bethany test prima rily for squam ous cance rs and precu rsors and has assoc iated false -nega tive and false -posi tive resul ts. New techn ologi es such as liqui d-bas ed prepa ratio ns may decre ase but will not elimi katie all false -nega tive resul ts. Regul ar sampl ing and follo w-up of unexp neida d clini valerio signs and sympt oms are recom amanda d to minim ize false negat cirilo resul ts. PROCE DURES /ADDE NDA HPV Testi ng (Requ ested ) Order ed Date: 2023 A. PAP SMEAR (THIN PREP) CE: Human Papil jessica Virus Test NEGAT CIRILO for high- risk Human Papil jessica Virus types 16, 18, 45 and the Othe r high risk probe set (Incl udes 31, 33, 35, 39, 51, 52, 56, 58, 59, 66, 68) Note: Testi ng perfo rmed by Katie bliss HR-HP V yvrose sis. Clini valerio corre latio n is advis ed. This HPV test was perfo rmed at [facility], [address] [facility]. This test has been FDA appro radha for both SureP ath and ThinP rep cervi valerio cytol ogy speci mens. The accur acy and preci stacie of this test for all other speci men sourc es has been verif ied in the Cytop athol ogy Labor atory of the [facility] and has not been clear ed or appro radha by the U.S. Food and Drug Admin istra tion. Clini valerio corre latio n is advis ed. Kim ctron icall y Juliana d Out By: DOMINIQUE Sorenson( CP) on 2023 09:38 CLINI VALERIO HISTO RY Date of Last Menst rual Perio d: Not Provi ded Menst rual Histo ry: Unkno wn Contr acept cirilo Histo ry: Miren a Other Clini valerio Condi tions : Scree bethany Pap SPECI MEN SOURC E A: PAP SMEAR (THIN PREP) CE Patie nt Name: KELLI OLIVERA SA : [birth year] (Age: 48) Sex: F 7 Insti tutio n: [facility] Locat ion: [facility] Date of Colle ction : 2023 Date of Acces stacie: 2023 Repor kermit: 2023 10:22 Resul ts to: Tarsha yn McCad den TOOL DESIGN ENGINEER Not Available [facility] (Outpatient) [address] [place], [address], 12/22/2023 10:33:04 07/13/20 24 07/13/2024 CBC WBC 9.47 K/??L 3.98-1 0.04 Not Available [address], [address], 07/13/2024 15:34:55 07/13/20 24 07/13/2024 CBC RBC 3.94 M/??L 3.93-5 .22 Not Available [address], [address], 07/13/2024 15:34:55 07/13/20 24 07/13/2024 CBC HGB 13.5 g/dL 11.2-1 5.7 Not Available [address], [address], 07/13/2024 15:34:55 07/13/20 24 07/13/2024 CBC HCT 39.7 % 34.1-4 4.9 Not Available [address], [address], 07/13/2024 15:34:55 07/13/20 24 07/13/2024 CBC MCV 100.8 fL 79.4-9 4.8 high Not Available [address], [address], 07/13/2024 15:34:55 07/13/20 24 07/13/2024 CBC MCH 34.3 pg 25.6-3 2.2 high Not Available [address], [address], 07/13/2024 15:34:55 07/13/20 24 07/13/2024 CBC MCHC 34.0 g/dL 32.2-3 5.5 Not Available [address], [address], 07/13/2024 15:34:55 07/13/20 24 07/13/2024 CBC plt 256 K/??L 182-36 9 Not Available [address], [address], 07/13/2024 15:34:55 07/13/20 24 07/13/2024 CBC MPV 9.3 fL 9.4-12 .3 low Not Available [address], [address], 07/13/2024 15:34:55 07/13/20 24 07/13/2024 CBC neut% 57.8 % 34.0-7 1.1 Not Available [address], [address], 07/13/2024 15:34:55 07/13/20 24 07/13/2024 CBC neut# 5.47 1.56-6 .13 Not Available [address], [address], 07/13/2024 15:34:55 07/13/20 24 07/13/2024 CBC lymph % 32.6 % 19.3-5 1.7 Not Available [address], [address], 07/13/2024 15:34:55 07/13/20 24 07/13/2024 CBC lymph # 3.09 K/??L 1.18-3 .74 Not Available [address], [address], 07/13/2024 15:34:55 07/13/20 24 07/13/2024 CBC mono% 7.5 % 4.7-12 .5 Not Available [address], [address], 07/13/2024 15:34:55 07/13/20 24 07/13/2024 CBC mono# 0.71 0.24-0 .56 high Not Available [address], [address], 07/13/2024 15:34:55 07/13/20 24 07/13/2024 CBC eo% 1.2 % 0.7-5. 8 Not Available [address], [address], 07/13/2024 15:34:55 07/13/20 24 07/13/2024 CBC eo# 0.11 0.04-0 .36 Not Available [address], [address], 07/13/2024 15:34:55 07/13/20 24 07/13/2024 CBC baso% 0.7 % 0.1-1. 2 Not Available [address], [address], 07/13/2024 15:34:55 07/13/20 24 07/13/2024 CBC baso# 0.07 0.00-0 .08 Not Available [address], [address], 07/13/2024 15:34:55 07/13/20 24 07/13/2024 CBC RDW-CV 11.4 % 11.7-1 4.4 low Not Available [address], [address], 07/13/2024 15:34:55 07/13/20 24 07/13/2024 CBC Ig% 0.200 % 0.000- 1.500 Ig % >0.5 Indic ates possi ble Left Shift Not Available [address], [address], 07/13/2024 15:34:55 07/13/20 24 07/13/2024 CBC Ig# 0.020 0.000- 0.093 Not Available [address], [address], 07/13/2024 15:34:55 07/13/20 24 07/13/2024 CBC NRBC% 0.0 % 0.0-0. 2 Not Available [address], [address], 07/13/2024 15:34:55 07/13/20 24 07/13/2024 CBC NRBC# 0.000 0.000- 0.012 Not Available [address], [address], 07/13/2024 15:34:55 07/13/20 24 07/16/2024 FSH FSH 102.0 mIU/m L Male: 1.0 - 42.5 mIU/m L Femal e Ovula ting: Folli cular Phase : 2.7 - 15.4 mIU/m L Peak: 3.9 - 22.0 mIU/m L Lutea l Phase : 1.0 - 14.4 mIU/m L Postm enopa usal: 25.0 - 160.0 mIU/m L Not Available [address], [address], 07/16/2024 12:28:07 07/13/20 24 07/16/2024 LH LH 34.0 mIU/m L Male: 1.7 - 11.2 mIU/m L Femal e Ovula ting: Folli cular Phase : 1.7 - 13.3 mIU/m L Peak: 4.1 - 68.7 mIU/m L Lutea l Phase : 0.5 - 19.8 mIU/m L Postm enopa usal: 14.4 - 62.2 mIU/m L Not Available [address], [address], 07/16/2024 12:28:08 07/13/20 24 07/16/2024 CLIFFORD TIN ferritin 627 NG/mL 15-200 high Not Available [address], [address], 07/16/2024 12:28:09 07/13/20 24 07/16/2024 TSH TSH 0.98 uIU/m L 0.50-6 .00 The Ameri can Colle ge of Endoc rinol ogy and Ameri can Thyro id Assoc iatio n recom mend goal TSH value s betwe en 0.4-4 .0 mIU/m L. Not Available [address], [address], 07/16/2024 14:13:47 07/26/20 24 07/26/2024 IRON PANEL iron 92 ug/dL 35-150 Not Available [address], [address], 07/26/2024 15:15:48 07/26/20 24 07/26/2024 IRON PANEL T.I.B.C. 346 ug/dL 250-45 0 Not Available [address], [address], 07/26/2024 15:15:48 07/26/20 24 07/26/2024 IRON PANEL % saturation 26.6 % Not Available [facility] [address], [address], 07/26/2024 15:15:48 07/26/20 24 08/07/2024 VITAM IN B12 vitamin B12 524 pg/mL 230-10 50 Not Available [address], [address], 08/07/2024 13:47:58 07/26/20 24 08/07/2024 FOLAT E folate >20 NG/mL 3-16 high > Not Available [address], [address], 08/07/2024 13:48:25 05/31/20 23 05/31/2023 US, abdom en, compl ete CLINIC AL HISTOR Y: Alcoho lic fatty liver TECHNI QUE: 2D sonogr aphy of the abdome n perfor med. COMPAR REECE: Octobe r 2020 FINDIN GS: The aorta and IVC are normal sized. The liver is echoge magui consis tent with fatty infilt ration . The liver is enlarg ed measur ing 19.2 cm.. There are no solid liver masses or intrah epatic duct dilata tion. The gallbl adder is thin-w alled. There is a 4 mm echoge magui focus at the periph rohini of the gallbl adder. This may repres ent a polyp. No defini te stones . No sludge The patien t is not focall y tender during examin ation of the gallbl adder. Common duct: 4 mm Right kidney 11.6 x 3.2 cm. The right kidney has no visual ized stones , solid masses , or hydron ephros is. Left kidney 11.6 x 4.9 cm. The left kidney has no visual ized stones , solid masses , or hydron ephros is. There is no ascite s. The visual ized portio ns of the pancre as are normal . There is some limita tion due to overly ing bowel gas. Spleen 8.7 cm. The spleen is unrema rkable . IMPRES STACIE: Fatty liver. Hepato megaly . No signif icant interv al change . 4 mm gallbl adder polyp not signif icantl y change d compar ed to the prior study. Joao gonsalez Physic marjorie: Krishan Alves [facility] (Imaging) [address], [place], [address], 06/01/2023 10:52:27 04/19/20 24 04/19/2024 MAMMO , scree bethany, tomos ynthe sis, bilat eral MAMMO, SCREEN , CHUY, BILAT: 024. BI-RAD S: 1 CLINIC AL: 50-yea r old Female for Bilate ral Screen ing Mammog walker. Tyrer- Arturozick lifeti me risk of 8.5%. No person al or first- degree family histor y of breast cancer . PRIOR EXAMS: No previo us exam presen tly availa ble for compar reece. MAMMOG BRIA TECHNI QUE: 3D mammog bria (tomos ynthes is) and 2D mammog bria (C-vie w) images are genera kermit. Images review ed with a CAD system . DENSIT Y C. The breast s are hetero geneou sly dense, which may obscur e small masses . MAMMOG BRIA FINDIN GS Bilate ral: No suspic ious mass, asymme try, microc alcifi cation , or other abnorm ality seen. CONCLU SIONNo eviden ce of malign nikita. RECOMM ENDATI ONS Bilate ralAnn ual screen ing mammog bria. ADMINI STRATI VE: A lay summar y was mailed to your patien t indica ting the result s and recomm endati ons for follow -up. OVERAL L ASSESS MENT CATEGO RY BI-RAD S-1: Negati ve. The Americ an [employer] e [employer] Radiol ogy recomm ends annual screen ing mammog bria beginn ing at age 40 for women with averag e risk of breast cancer . ELECTR ONICAL LY SIGNED : Krishan Alves M.D. on 2023 at 02:05: 34 PM Joao Julian marjorie: Krishan Alves sconnor5 [facility] (Imaging) [address] [place] [address] , [place], [address], 04/19/2024 14:54:50 Result Notes None recorded. Problems Name Problem SNOMED Code Status Onset Date Resolution Date Notes Provider Name and Address Organization Details Recorded Time Divertic ulitis of colon 159180801 Active 2018 perforat ion with divertin g colostom y; closed on 02/05/19) Not Available [facility] 2 09:38:10 Muscle pain 58965492 Active 2022 AGUILAR Esquivel [address] [place] [address], [address] , [facility] 3 10:05:14 Liver enzymes level above referenc e range 031716751 Active 2022 AGUILAR Esquivel [address] [place] [address], [address] , [facility] 3 10:05:22 Alcoholi c fatty liver 54842033 Active 2022 AGUILAR Esquivel [address] [place] [address], [address] , [facility] 3 10:06:11 Alcohol intake above recommen ded sensible limits 741347557 Active 2022 AGUILAR Esquivel [address] [place] [address], [address] , [facility] 3 10:08:08 Neuropat hy 765244428 Active 2022 AGUILAR Esquivel [address] [place] [address], [address] , [facility] 3 13:28:54 Myalgia/ myositis - multiple 016116884 Active 2022 AGUILAR Esquivel [address] [place] [address], [address] , [facility] 3 13:28:55 Headache 56949250 Completed 200109/20/2011 Rick Navarro MD [address] [place] [address], [address] , [facility] 6 15:01:04 Cough 71105624 Completed 200009/20/2011 Rick Navarro MD [address] [place] [address], [address] , [facility] 6 15:01:04 Migraine without aura 06297100 Active 2002 Not Available [facility] 2 09:38:10 Right upper quadrant pain 286739503 Completed 09/20/2011 Rick Navarro MD [address] [place] [address], [address] , [facility] 6 15:01:04 Acute cystitis 34217247 Completed 200109/20/2011 Rick Navarro MD [address] [place] [address], [address] , [facility] 6 15:01:04 Anxiety state 621295749 Active 2008 Not Available [facility] 2 09:38:10 Acute pharyngi tis 667211922 Completed 06/20/2013 iRck Navarro MD [address] [place] [address], [address] , [facility] 6 15:01:03 Allergic rhinitis 60673707 Active 2001 Not Available [facility] 2 09:38:10 Influenz a 6919243 Completed 09/20/2011 Rick Navarro MD [address] [place] [address], [address] , [facility] 6 15:01:03 Dizzines s 363264136 Completed 200109/20/2011 Rick Navarro MD [address] [place] [address], [address] , [facility] 6 15:01:04 Sprain of ankle 44128391 Completed 200609/20/2011 Rick Navarro MD [address] [place] [address], [address] , [facility] 6 15:01:04 Acute sinusiti s 59778302 Completed 200709/20/2011 Rick Navarro MD [address] [place] [address], [address] , [facility] 6 15:01:03 Major depressi on, melancho lic type 067529759 Active 2008 Not Available [facility] 2 09:38:10 Contact dermatit is due to plants, except food Completed 200206/20/2013 Rick Navarro MD [address] [place] [address], [address] , [facility] 6 15:01:04 Acute upper respirat ory infectio n 04540255 Completed 09/20/2011 Rick Navarro MD [address] [place] [address], [address] , [facility] 6 15:01:03 Pain in throat 632329016 Completed 09/20/2011 Rick Navarro MD [address] [place] [address], [address] , [facility] 6 15:01:03 Common cold 35717618 Completed 200109/20/2011 Rick Navarro MD [address] [place] [address], [address] , [facility] 6 15:01:03 Injury of knee 535353543 Completed 200609/20/2011 Rick Navarro MD [address] [place] [address], [address] , [facility] 6 15:01:04 Benign paroxysm al position al vertigo 114973250 Active 2000 Not Available [facility] 2 09:38:10 Acute conjunct ivitis 85838867 Completed 200109/20/2011 Rick Navarro MD [address] [place] [address], [address] , [facility] 6 15:01:03 Acute maxillar y sinusiti s 88219765 Completed 200509/20/2011 Rick Navarro MD [address] [place] [address], [address] , [facility] 6 15:01:03 Epigastr ic pain 82060962 Completed 200109/20/2011 Rick Navarro MD [address] [place] [address], [address] , [facility] 6 15:01:04 Acute bronchit is 98172369 Completed 200209/20/2011 Rick Navarro MD [address] [place] [address], [address] , [facility] 6 15:01:03 Streptoc occal sore throat 19610264 Completed 200009/20/2011 Rick Navarro MD [address] [place] [address], [address] , [facility] 6 15:01:03 Malaise and fatigue 354676152 Completed 200109/20/2011 Rick Navarro MD [address] [place], [address] , [facility] 6 15:01:04 Otogenic otalgia 19878113 Completed 200109/20/2011 Rick Navarro MD [address] [place] [address], [address] , [facility] 6 15:01:03 Vaginiti s and vulvovag initis Completed 200109/20/2011 Rick Navarro MD [address] [place] [address], [address] , [facility] 6 15:01:04 Problem Notes None recorded. Procedures Surgical History Date Name Laterality Status Provider Name and Address Organization Details Recorded Time 07/13/20 24 Smoking cessation counseling cancelled Alec Andrew [facility] 07/11/2024 11:49:45 06/15/20 24 Smoking cessation counseling completed Verito Mooney [facility] 06/15/2024 11:10:25 12/24/19 23 Smoking cessation counseling completed Raisa Resendez [facility] 12/23/2022 14:16:10 10/07/19 23 Smoking cessation counseling cancelled Maggie Caban [facility] 10/06/2022 11:21:01 03/04/20 20 prevention-cardi ovascular risk reduction counseling completed Beata Baptiste [facility] 03/04/2020 10:32:30 03/04/20 20 prevention-annua l alcohol misuse screening completed Beata Baptiste [facility] 03/04/2020 10:32:30 10/28/19 19 POC Urinalysis Testing completed Val Brown [facility] 10/27/2018 11:11:57 04/24/20 18 Smoking cessation counseling completed Brandi [facility] 04/24/2018 10:56:44 04/24/20 18 Carbon Monoxide Testing completed [facility] 04/24/2018 10:56:44 10/25/19 18 Smoking cessation counseling completed Rosario [facility] 10/24/2017 15:00:23 10/25/19 18 Carbon Monoxide Testing completed Rosario [facility] 10/24/2017 15:00:23 12/07/19 17 POC hCG Testing completed [facility] 12/06/2016 15:30:12 12/07/19 17 IUD Insertion completed Jerson Pascual MD [address] [place] [address], [phone], [facility] 12/06/2016 16:13:49 12/07/19 17 IUD Removal completed Jerson Pascual MD [address] [place] [address], [phone], [facility] 12/06/2016 15:57:09 10/20/19 17 Smoking cessation counseling completed Tiffany Escobedo [facility] 10/19/2016 16:48:59 06/18/20 15 Smoking cessation counseling completed Minna Rahman [facility] 06/18/2015 13:32:21 06/18/20 15 Nebulizer Tx completed [facility] 06/18/2015 14:04:25 04/19/20 14 Appendectomy completed Rick Navarro MD [address] [place] [address], [phone], [facility] 04/25/2014 21:47:49 03/03/20 12 IUD Insertion completed Danyel Garcia MD [address] [place] [address], [phone], [facility] 03/04/2012 11:21:16 Imaging Results Imaging Date Name Status LastModified by Organiz ation Details LastModified Time 05/31/2023 US, abdomen, complete completed [facility] (Imaging) [address], [place], [id number], 06/01/2023 10:52:27 04/19/2024 MAMMO, screening, tomosynthesis, bilateral completed [email or web address] [facility] (Imaging) [address] [place], [id number], 04/19/2024 14:54:50 Procedure Notes None recorded. Medical Equipment None Reported. Allergies Allergen ID Allergen Name Allergen Category Reaction Reaction Severity Criticality Documentation Date Start Date Code Code System Note Provider Name and Address Organization Details Recorded Time 092572 morphine medicatio n itching mild Not available 02/28/2019 7052 [facility] 13:43:12 Medications Name Sig Start Date Stop Date Status Note LastModified by Organization Details LastModified Time cyclobenz aprine 10 mg tablet Take 1 tablet every day by oral route at bedtime. 02/28 completed Not Available Not Available Not Available Mirena 21 mcg/24 hr (up to 8 years) 52 mg intrauter ine device Take 1 device by intraute rine route. active Inserted [address] Pascual; replace 2021 Not Available Not Available Not Available mesalamin e 4 gram/60 mL enema 4 G (60 ML) RECTALLY BEDTIME NEEDED FOR HEMORRHO IDS FOR 30 DAYS active PRN 06/15/24 SD Not Available Not Available Not Available prednison e 10 mg tablet TAKE 4 TABLETS BY MOUTH EVERY DAY X3 DAYS, 3 TABS DAILY X3 DAYS, 2 TABS X3 DAYS, THEN 1 TAB X3 DAYS 04/22 completed Not Available Not Available Not Available erythromy haven 500 mg tablet TAKE 2 TABLETS BY MOUTH AT 1 PM, 2 PM AND 11 PM DAY PRIOR TO SURGERY 02/28 completed Not Available Not Available Not Available loperamid e 2 mg capsule 01/12 completed PRN Not Available Not Available Not Available Topamax 25 mg tablet 2006 active Take 1.00 tabs daily Not Available Not Available Not Available azithromy haven 250 mg tablet TAKE 2 TABLETS (500 MG) BY ORAL ROUTE ONCE DAILY FOR 1 DAY THEN 1 TABLET (250 MG) BY ORAL ROUTE ONCE DAILY FOR 4 DAYS 2014 active Not Available Not Available Not Avai lable Lidocaine Viscous 2 % mucosal solution Take 10 millilit ers gargle and spit out by oral route every 2-4 hours as needed for sore throat. 2014 active Not Available Not Available Not Avai lable prednison e 20 mg tablet Take 2 tablets every day by oral route for 5 days. 01/12 completed Not Available Not Available Not Available clonazepa m 0.5 mg tablet TAKE 1 TABLET BY MOUTH EVERY DAY NEEDED FOR 28 DAYS active Not Available Not Available No t Available clonazepa m 1 mg tablet TAKE 1/2 X 1 TABLET ORALLY DAILY FOR MIGRAINE HEADACHE FOR 30 DAYS active Not Available Not Available No t Available clobetaso l 0.05 % topical cream APPLY A THIN LAYER TO THE AFFECTED AREA(S) BY TOPICAL ROUTE 2 TIMES PER DAY 04/13 completed Not Available Not Available Not Available Diflucan 150 mg tablet TAKE 1 TABLET (150 MG) BY ORAL ROUTE ONCE 2011 active Not Available Not Available Not Avai lable cyanocoba brain (vit B-12) 1,000 mcg tablet Take 1 tablet every day by oral route. 12/15 completed not taking 04/22/23 pp Not Available Not Available Not Available Zyrtec 10 mg tablet Take 1 tablet every day by oral route. active otc Not Available Not Available No t Available tramadol 50 mg tablet TAKE 1 TABLET BY MOUTH EVERY 6 HOURS NEEDED FOR PAIN, SEVERE OK TO TAKE 1-2 TABS AT A TIME 12/23 completed Not taking 04/20/22 PP Not Available Not Available Not Available amoxicill in 500 mg tablet TAKE 1 TABLET BY MOUTH 3 TIMES A DAY UNTIL FINISHED 12/15 completed Not Available Not Available Not Available prednison e 10 mg tablets in a dose pack TAKE 1 DOSE PACK BY MOUTH DIRECTED 04/22 completed Not Available Not Available Not Available hydromorp chioma 2 mg tablet TAKE 1 TO 2 TABLETS BY MOUTH EVERY 4 HOURS NEEDED FOR PAIN 02/28 completed Not Available Not Available Not Available amitripty line 10 mg tablet TAKE 1 TABLET AT BEDTIME active Not Available Not Available No t Available ferrous sulfate 325 mg (65 mg iron) tablet TAKE 1 TABLET BY MOUTH EVERY DAY active Not Available Not Available No t Available triamcino lone acetonide 55 mcg nasal spray aerosol USE 1 SPRAY INTRANAS ALLY EVERY DAY 12/23 completed uses otc- LJL Not Available Not Available Not Available hyoscyami ne 0.125 mg sublingua l tablet PLACE 1 TABLET SUBLINGU ALLY EVERY 8 TO 12 HOURS FOR FOR INDIGEST ION active Not Available Not Available No t Available codeine 10 mg-guaife nesin 100 mg/5 mL Syrup Take 10 mL every 4-6 hours by oral route as needed. 2010 active Not Available Not Available Not Avai lable sertralin e 25 mg tablet Take 1 tablet every day by oral route for 30 days. 2008 active Not Available Not Available Not Avai lable CombiPatc h 0.05 mg-0.25 mg/24 hr transderm al Apply 1 patch twice a week by transder mal route. 07/20 completed still has active mrena Not Available Not Available Not Available omeprazol e 20 mg capsule,d elayed release TAKE 1 CAPSULE BY MOUTH EVERY DAY active Not Available Not Available No t Available magnesium citrate oral solution TAKE 150 ML ONCE THE MORNING PRIOR TO SURGERY 02/28 completed Not Available Not Available Not Available codeine 10 mg-guaife nesin 100 mg/5 mL oral liquid Take 5-10 mL EVERY 6 HOURS as needed for cough by oral route. 2014 active Not Available Not Available Not Avai lable clobetaso l 0.05 % topical ointment Apply by topical route.sp aringly twice daily to rash (not on face) 2011 active Not Available Not Available Not Avai lable Nasonex 50 mcg/actua tion [place] active 2sprays ea qd Not Available Not Available Not Available methylpre dnisolone 4 mg tablets in a dose pack TAKE 6 TABLETS ON DAY 1 DIRECTED ON PACKAGE AND DECREASE BY 1 TAB EACH DAY FOR A TOTAL OF 6 DAYS 01/12 completed Not Available Not Available Not Available neomycin 500 mg tablet TAKE 2 TABLETS BY MOUTH AT 1 PM, 2 PM AND 11 PM DAY PRIOR TO SURGERY 02/28 completed Not Available Not Available Not Available albuterol sulfate HFA 90 mcg/actua tion aerosol inhaler Inhale 2 puffs every 4 hours by inhalati on route. 10/19 completed Not Available Not Available Not Available propranol ol 20 mg tablet TAKE 1 TABLET BY MOUTH THREE TIMES A DAY active Once daily 06/15/24 SD Not Available Not Available Not Available celecoxib 100 mg capsule TAKE 1 CAPSULE BY MOUTH TWICE A DAY NEEDED FOR PAIN FOR 30 DAYS 12/15 completed Not Available Not Available Not Available fluocinon tika 0.05 % topical cream APPLY TO THE AFFECTED AREA(S) BY TOPICAL ROUTE 2 TIMES PER DAY 11/04 completed prn Not Available Not Available Not Available hydroxyzi ne HCl 10 mg tablet Take 1 tablet as needed by oral route at bedtime. 2009 active Not Available Not Available Not Avai lable sertralin e 50 mg tablet take 1-1/2 daily 2010 active Not Available Not Available Not Avai lable amoxicill in 875 mg-potass ium clavulana te 125 mg tablet TAKE 1 TABLET BY MOUTH EVERY 12 HOURS FOR 7 DAYS 12/23 completed 10/06/22 KF not taking Not Available Not Available Not Available amoxicill in 500 mg-potass ium clavulana te 125 mg tablet TAKE 1 TABLET BY MOUTH EVERY 12 HOURS 02/28 completed Not Available Not Available Not Available clonazepa m 0.5 mg disintegr ating tablet Place 1 tablet twice a day by translin gual route. 03/04 completed Not Available Not Available Not Available Paxil active 10MG DAILY(I TAB) Not Available Not Available Not Available Lashay active 1qd Not Available Not Avail able Not Available clonazepa m active 0.5 MG 1 BID Not Available Not Available Not Available GaviLyte- G 236 gram-22.7 4 gram-6.74 gram-5.86 gram oral solution 09/23 completed Not Available Not Available Not Available Zyrtec 10 mg capsule active take 1 tab daily Not Available Not Available Not Available Xifaxan 550 mg tablet TAKE 1 TABLET BY MOUTH 3 TIMES A DAY FOR 14 DAYS 12/23 completed Not Available Not Available Not Available Yelena 0.0375 mg/24 hr transderm al patch 90d supply sent active Not Available Not Available No t Available Flowflex COVID-19 Antigen Home Test kit 09/23 completed Not Available Not Available Not Available Vitals Date Recorded Body height Provider Name an d Address Organization Details Last Updated DateTime 04/22/2023 149.86 cm CIRO James [facility] 04/22/2023 11:59:24 Date Recorded Heart rate Provider Name an d Address Organization Details Last Updated DateTime 04/22/2023 89 /min CIRO James [facility] 04/22/2023 12:01:26 Date Recorded Oxygen saturation Oxygen saturation in Arterial blood by Pulse oximetry Provider Name and Address Organization Details Last Updated DateTime 04/22/2023 98 % 98 % Zeinab Rothman, [facility] 04/22/2023 12:01:30 Date Recorded Body height Provider Name an d Address Organization Details Last Updated DateTime 12/16/2023 149.86 cm Rosario Jenkinsstacey [facility] 12/16/2023 11:26:04 Date Recorded Oxygen saturation Oxygen saturation in Arterial blood by Pulse oximetry Provider Name and Address Organization Details Last Updated DateTime 12/16/2023 98 % 98 % Rosario Pereira [facility] 12/16/2023 11:27:28 Date Recorded Heart rate Provider Name an d Address Organization Details Last Updated DateTime 12/16/2023 74 /min Rosario Pereira [facility] 12/16/2023 11:27:30 Date Recorded Body mass index (BMI) Body weight Provider Name and Address Organization Details Last Updated DateTime 12/16/2023 24.7 kg/m2 71215.67 g Rosario Pereira [facility] 12/16/2023 11:27:55 Date Recorded Body height Provider Name an d Address Organization Details Last Updated DateTime 01/24/2024 149.86 cm Rosario Pereira [facility] 01/24/2024 15:28:23 Date Recorded Body mass index (BMI) Provider Name and Address Organization Details Last Updated DateTime 01/24/2024 24.6 kg/m2 Rosario Pereira [facility] 01/24/2024 15:28:35 Date Recorded Body weight Provider Name an d Address Organization Details Last Updated DateTime 01/24/2024 06861.27 g Rosario Pereira [facility] 01/24/2024 15:28:36 Date Recorded Body height Provider Name an d Address Organization Details Last Updated DateTime 06/15/2024 149.86 [facility] 15:08:07 Date Recorded Body mass index (BMI) Body weight Provider Name and Address Organization Details Last Updated DateTime 06/15/2024 26.1 kg/m2 77454.42 g [facility] 15:13:57 Date Recorded Heart rate Provider Name an d Address Organization Details Last Updated DateTime 06/15/2024 88 /min Verito Mooney [facility] 06/15/2024 15:19:47 Date Recorded Body height Provider Name an d Address Organization Details Last Updated DateTime 07/20/2024 149.86 cm Say Senakerri [facility] 07/20/2024 16:03:37 Date Recorded Body mass index (BMI) Body weight Provider Name and Address Organization Details Last Updated DateTime 07/20/2024 26.5 kg/m2 83367 g Say Gandara [facility] 07/20/2024 16:06:13 Date Recorded Heart rate Provider Name an d Address Organization Details Last Updated DateTime 07/20/2024 86 /min Say Gandara [facility] 07/20/2024 16:12:57 Date Recorded Oxygen saturation Oxygen saturation in Arterial blood by Pulse oximetry Provider Name and Address Organization Details Last Updated DateTime 07/20/2024 96 % 96 % Say Gandara [facility] 07/20/2024 16:13:03 Date Recorded Systolic blood pressure Diastolic blood pressure Provider Name and Address Organization Details Last Updated DateTime 04/22/2023 128 mm[Hg] 76 mm[Hg] Zeinab Rothman [facility] 04/22/2023 12:01:22 Date Recorded Systolic blood pressure Diastolic blood pressure Provider Name and Address Organization Details Last Updated DateTime 12/16/2023 118 mm[Hg] 68 mm[Hg] Rosario Pereira [facility] 12/16/2023 11:27:17 Date Recorded Systolic blood pressure Diastolic blood pressure Provider Name and Address Organization Details Last Updated DateTime 06/15/2024 150 mm[Hg] 90 mm[Hg] Verito Mooney [facility] 06/15/2024 15:20:28 Date Recorded Systolic blood pressure Diastolic blood pressure Provider Name and Address Organization Details Last Updated DateTime 07/20/2024 138 mm[Hg] 90 mm[Hg] Say Gandara [facility] 07/20/2024 16:12:44 Social History Question Answer Notes LastModified by Organization Details LastModified Time Tobacco Smoking Status Current Some Day Smoker 12/16/2023 occasionally quit smoking last October (2018) [facility] 12/16/2023 11:22:22 Do You Have An Advance Directive? No [email or web address] Information not available 06/17/2011 What Is Your Level Of Alcohol Consumption? Moderate A Few Drinks In The Evening 2 Drinks Few Days Week Information not available 12/16/2023 Do You Wear A Helmet When Biking? Yes Information not available 10/13/2015 What Is Your Level Of Caffeine Consumption? Occasional Ice Tea Occasionally Information not available 12/16/2023 How Much Tobacco Do You Chew? None Information not available 06/17/2011 Are You Currently Employed? Yes Information not available 08/24/2022 What Type Of Diet Are You Following? REGULAR [email or web address] Information not available 06/17/2011 Which Illicit Or Recreational Drugs Have You Used? None spise Information not available 10/27/2018 Do You Or Have You Ever Used E-cigarettes Or Vape? Never Used Electronic Cigarettes [email or web address] Information not available 11/05/2019 Education 4 Year College Information not available 06/17/2011 Have There Been Any Changes To Your Family Or Social Situation? Yes Lots Of Stress, Signifant Other Loss Of Income Information not available 12/16/2023 How Many Days In The Past Year Have You Had A Heavy Drinking Consumption (4+ Female, 5+ Male)? 0 Information not available 06/13/2015 Are There Any Guns Present In Your Home? No [email or web address] Information not available 06/17/2011 Do You Use Insect Repellent Routinely? Yes Information not available 04/13/2021 Live Alone Or With Others? With Others Son robin Information not available 02/28/2019 CSRP - Narcotics No Information not available 09/20/2011 CSRP Contract Signed And Discussed No Information not available 09/20/2011 Does The Patient Have Difficulty Speaking Polish? No Information not available 09/20/2011 Does The Patient Have Difficulty Reading Polish? No Information not available 09/20/2011 Patient Has Health Care Proxy Signed And In Chart No Information not available 06/17/2011 CSRP - Stimulants No Information not available 10/13/2015 CSRP - Suboxone No Informati on not available 10/13/2015 Marital Status Information not available 06/17/2011 Mosquito Repellent Used Routinely No Information not available 06/17/2011 What Was The Date Of Your Most Recent Tobacco Screening? 07/20/2024 Information not available 07/20/2024 How Many Children Do You Have? 1 Son Brian 2000. Works 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 Information not available 06/17/2011 What Is Your Current Pack Years? [email or web address] Information not available 06/13/2015 What Is Your Relationship Status? [facility] Information not available 06/15/2024 Do You Use Your Seat Belt Or Car Seat Routinely? Yes Information not available 04/13/2021 Seat Belts Used Routinely Yes Information not available 06/17/2011 Smoke Alarm In Home Yes Information not available 06/17/2011 Do You Have Smoke And Carbon Monoxide Detectors In Your Home? Yes Information not available 04/13/2021 Are You Passively Exposed To Smoke? Yes Boyfriend Smokes, Patient Smokes Occasionally Information not available 12/16/2023 Do You Or Have You Ever Used Smokeless Tobacco? Never Used Smokeless Tobacco [email or web address] Information not available 11/05/2019 How Much Tobacco Do You Smoke? No [email or web address] Information not available 11/05/2019 General Stress Level High [email or web address] Information not available 02/28/2019 Do You Use Any Illicit Or Recreational Drugs? Yes Information not available 04/13/2021 Do You Use Sunscreen Routinely? Yes Information not available 06/17/2011 How Many Years Have You Smoked Tobacco? 20 Smoked 2-3 Cigs Daily [email or web address] Information not available 12/25/2020 Do You Or Have You Ever Used Any Other Forms Of Tobacco Or Nicotine? No Information not available 04/22/2023 Sex: Unknown Functional Status Question Answer Note LastModified by Organization D etails LastModified Time What is your exercise level? None Information not available 08/24/2022 Mental Status None recorded. Family History Relationship Description Onset Age of this Age Resolved Age Notes LastModified by Organization Details LastModified Time Father Diabetes mellitus 2011; cardia c arrest [email or web address] Not available 10/13/2015 15:24:36 Maternal Grandfather Malignant tumor of lung [email or web address] Not available 2023 16:20:44 Maternal Grandmother Neoplasm of stomach [email or web address] Not available 2023 16:21:31 Notes:type 2 diabetes Medical History Condition Response Depression Y GERD Y Migraine Headaches Y Gynecological HistoryNo gynecological history recorded. Obstetrics History GPAL:G 0 P 0 0 0 0 Immunizations Vaccine Type Date Status Note Provider Nam e and Address Organization Details Recorded Time Influenza, split virus, trivalent, preservative 1 completed Tiffany Escobedo [facility] 09/20/2011 11:07:35 influenza, unspecified formulation 0 completed Shannon Smith [facility] 11/05/2019 09:53:24 Influenza, split virus, quadrivalent, preservative [address] [facility] 10/02/2020 15:46:45 COVID-19, mRNA, LNP-S, PF, 30 mcg/0.3 mL dose 0 completed Chrissie Ricci MA [facility] 10/02/2020 15:47:20 COVID-19, mRNA, LNP-S, PF, 30 mcg/0.3 mL dose 1 completed K[facility] 10/02/2020 15:47:28 COVID-19, mRNA, LNP-S, PF, 100 mcg/0.5mL dose or 50 mcg/0.25mL dose 1 completed CIRO James[facility] 04/20/2022 11:56:45 COVID-19, mRNA, LNP-S, bivalent, PF, 30 mcg/0.3 mL dose 2 completed CIRO [facility] 07/07/2022 11:44:24 influenza, unspecified formulation 4 [facility] 11:51:21 Past Encounters Encounter ID Performer Location Encounter Start Date Encounter Closed Date Diagnosis/Indication Diagnosis SNOMED-CT Code Diagnosis ICD10 Code Diagnosis Note [id number] [facility], OFFICE [address] [place] [address] 10/12/2000 10:30:00 08/21/2008 02:02:29 [id number] [facility], OFFICE [address] [place] [address] 03/01/2001 16:30:00 08/21/2008 02:02:29 [id number] [facility], OFFICE [address] [place] [address] 04/26/2001 16:15:00 08/21/2008 02:02:29 [id number] [facility], OFFICE [address] [place] [address] 08/05/2001 09:00:00 08/21/2008 02:02:29 [id number] [facility], [address] [place] [address] 09/02/2001 10:30:00 08/21/2008 02:02:29 [id number] [facility], OFFICE [address] [place] [address] 09/07/2001 16:15:00 08/21/2008 02:02:29 [id number] [facility] - [facility] [address] [place] [address] 09/02/2001 00:00:00 08/21/2008 02:02:29 [id number] [facility], OFFICE [address] [place] [address] 01/05/2002 14:55:45 08/21/2008 02:02:29 [id number] [facility], OFFICE [address] [id number] 01/16/2002 08:42:49 08/21/2008 02:02:29 [id number] LAB - [facility] [address] [place] [address] 01/22/2002 09:48:37 08/21/2008 02:02:29 [id number] [facility], OFFICE [address] [place] [address] 02/17/2002 10:57:49 08/21/2008 02:02:29 [id number] [facility], OFFICE [address] [place] [address] 03/08/2002 09:55:47 08/21/2008 02:02:29 [id number] LAB - [facility] [address] [place] [address] 03/08/2002 11:08:05 08/21/2008 02:02:29 [id number] [facility], OFFICE [address] [place] [address] 03/16/2002 09:37:17 08/21/2008 02:02:29 [id number] [facility], OFFICE [address] [place] [address] 07/23/2002 10:22:42 08/21/2008 02:02:29 [id number] LAB - [facility] [address] [place] [address] 07/23/2002 00:00:00 08/21/2008 02:02:29 [id number] [facility], OFFICE [address] [place] [address] 11/14/2002 15:45:17 08/21/2008 02:02:29 [id number] [facility], OFFICE [address] [place] [address] 12/12/2002 16:04:42 08/21/2008 02:02:29 [id number] LAB - [facility] [address] [place] [address] 01/21/2003 11:07:07 08/21/2008 02:02:29 [id number] [facility], OFFICE [address] [place] [address] 02/26/2003 11:27:15 08/21/2008 02:02:29 [id number] , [facility], OFFICE [address] [place] [address] 2006 11:23:30 05/18/2006 14:33:15 [id number] FP, [facility], OFFICE [address] [place] [address] 11/05/2006 10:45:48 11/05/2006 15:20:10 [id number] , [facility], OFFICE [address] [place] [address] 12/20/2006 09:53:34 12/22/2006 11:35:02 [id number] , [facility], OFFICE [address] [place] [address] 12/27/2006 11:05:07 12/27/2006 15:18:18 [id number] Radiology , [facility] [address] [place] [address] 12/27/2006 12:09:44 12/28/2006 09:21:55 [id number] , [facility], OFFICE [address] [place] [address] 01/02/2007 10:00:08 01/02/2007 11:51:52 [id number] , [facility], OFFICE [address] [place] [address] 02/19/2007 10:37:07 02/20/2007 09:03:10 [id number] FP, [facility], OFFICE [address] [place] [address] 08/18/2007 14:59:42 08/21/2008 02:02:29 [id number] , [facility], OFFICE [address] [place] [address] 12/08/2008 11:05:03 12/12/2008 14:37:50 [id number] , [facility], OFFICE [address] [place] [address] 03/18/2009 14:19:47 03/21/2009 13:19:13 [id number] Radiology , [facility] [address] [place] [address] 03/20/2009 09:28:01 03/31/2009 07:52:36 [id number] , [facility], OFFICE [address] [place] [address] 05/19/2009 11:00:33 06/09/2009 12:03:26 [id number] LAB - [facility] [address] [place] [address] 12/08/2008 00:00:00 05/29/2009 02:00:52 [id number] LAB - [facility] KIM [id number] 6 03/18/2009 15:09:39 03/18/2009 15:10:01 [id number] LAB - [facility] [place] [address] 03/18/2009 00:00:00 05/29/2009 02:00:52 [id number] FP, [facility], OFFICE [address] [place] [address] 07/14/2009 10:52:50 07/15/2009 11:19:10 [id number] FP, [facility], OFFICE [address] K[place] CONDON62[address] 12/02/2009 13:19:03 12/03/2009 12:59:04 [id number] FP, [facility] [facility], [address] [place] [address] 12/03/2009 17:32:00 12/10/2009 12:06:50 [id number] FP, [facility], [address] [place] [address] 03/03/2010 12:00:16 03/03/2010 17:37:32 [id number] FP, [facility], [address] [place] [address] 05/25/2010 08:53:48 05/27/2010 09:23:51 [id number] FP, [facility], [address] [place] [address] 06/23/2010 09:20:58 06/23/2010 14:15:57 [id number] FP, [facility], [address] [place] [address] 09/28/2010 11:48:52 09/28/2010 14:14:09 [id number] FP, [facility], [address] [place] [address] 07/16/2011 09:34:45 07/19/2011 11:42:19 [id number] FP, [facility], [address] [place] [address] 09/20/2011 10:41:09 09/20/2011 11:55:57 [id number] FP, [facility], [address] [place] [address] 10/19/2011 14:01:20 10/25/2011 09:27:25 [id number] Rick Navarro MD , [facility], [address] [place] [address] 03/01/2012 16:01:47 03/01/2012 16:48:27 [id number] [facility], [address] [place] [address] 03/03/2012 15:59:54 03/03/2012 17:28:54 [id number] Rcik Navarro MD , [facility], [address] [place] [address] 06/26/2012 11:13:21 06/26/2012 12:02:44 [id number] Neo Araujo MD , [facility], [address] [place] [address] 03/14/2013 14:31:42 03/15/2013 12:00:45 Sacroiliac joint pain [id number] Left lower back pain likely due to sacroiliit is. Recommende d to continue NSAID's and use Tylox as needed at night (#20 tabs prescribed at [facility]). Home exercise demonstrat ed and handout given. Also recommende d Physical Therapy referral. Non-focal neurologic exam. Possible injection and Physiatry referral discussed if symptoms to not improve. Patient would like to try conservati ve measures. Advised to contact the clinic if no improvemen t. Indication s for UC/ER use discussed. [id number] Tavia Valverde [facility], [address] [place] [address] 10/02/2013 10:11:49 10/02/2013 14:21:39 Adult health examination [id number] see Risk Assessment and Lifestyle Change Counseling section above. overall healthy 38 year old. has not had lipid panel in > 5 years. would prefer to defer pap until 3 years. Counseling [id number] Tobacco user [id number] p t in contemplat cirilo stage. offered support for discontinu ation [id number] Stephanie Stark , [facility], [address] [place] [address] 08/30/2014 13:11:27 09/09/2014 13:21:15 Sinusitis 57935151 [id number] Stephanie Mi , [facility], [address] [place] [address] 11/30/2014 12:55:26 12/05/2014 09:54:15 Upper respiratory infection 61809204 Pharyngitis 782810150 [id number] Juanita Nixon MD , [facility], [address] [place] [address] 06/13/2015 14:55:55 06/13/2015 15:30:27 Cough 62268949 R05 with fever, borderline high pulse and oxygen sat 95% clear CXR suspect viral infection, possible flu sx care: rest/fluid s/nutritio n codeine for cough work note given Cigarette smoker 0706682 7 F17.210 precontemp lative counseled [id number] WINSTON Reis , [facility], [address] [place] [address] 06/18/2015 13:05:35 06/18/2015 14:28:04 Acute upper respiratory infection 91831501 J06.9 Educated patient that URI is a viral illness of the upper airways. It is not bacterial and does not benefit from antibiotic s. Average duration of URI is 7-10 days but in a recent trial, treatment at 7-10 days of illness with antibiotic s, intranasal steroids, or placebo did not alter natural history at 3 weeks. Recommende d symptomati c treatments including NSAIDS, semi-uprig ht sleep position, antihistam laine at HS, limited course of nasal sympathomi metics and/or cough syrups, and nasal saline rinses with soft squeeze bottle or Neti pot. Return for fevers > 101 for 3 days, worsening sinus pain, or failure to resolve in 2-4 weeks. Tobacco user 370537580 Z 72.0 Bronchospasm 0537598 J98 .01 [id number] AGUILAR Benson , [facility], [address] [place] [address] 07/15/2015 10:09:22 07/15/2015 10:59:50 Insect bite - wound 359692013 T14.8 Probable insect bite, advised to continue w/Bacitrac in to affected area w/Bandaid. Watch for increased redness, swelling & pain. [id number] Rick Navarro MD , [facility], [address] [place] [address] 10/13/2015 14:38:19 10/14/2015 14:27:35 Adult health examination 600661560 Z00.00 see Risk Assessment and Lifestyle Change Counseling section above Counseling 388731136 Z71 .9 Screening for malignant neoplasm of cervix 893221371 Z12.4 Migraine without aura 56 560861 G43.009 Allergic rhinitis 944175 04 J30.9 [id number] Rick Navarro MD , [facility], [address] [place] [address] 10/19/2016 15:42:30 10/22/2016 11:04:56 Adult health examination 347555256 Z00.00 see Risk Assessment and Lifestyle Change Counseling section above Counseling 414035348 Z71 .9 Anxiety state 235972871 F41.1 Allergic rhinitis 934244 04 J30.9 Cigarette smoker 3566977 7 F17.210 Tobacco user 663049026 Z 72.0 Eczema 24562155 L30.9 [id number] Sindhu Causey , [facility], [address] [place] [address] 12/06/2016 15:08:56 12/06/2016 16:23:23 Insertion of intrauterine contraceptive device 84856693 Z30.430 Venereal d isease screening 150646130 Z11.3 [id number] Rick Navarro MD , [facility], [address] [place] [address] 10/24/2017 14:31:05 10/24/2017 15:39:00 Adult health examination 345664440 Z00.00 see Risk Assessment and Lifestyle Change Counseling section above Counseling 700173035 Z71 .9 Depression screening 171 678649 Z13.89 depression screening tool administer ed, entered into emr, scored and discussed, time greater than 7.5 minutes Cigarette smoker 7657120 7 F17.210 Tobacco user 601067129 Z 72.0 Anxiety state 868423758 F41.1 Major depr ession, melancholic type 345060499 F32.9 Migraine without aura 56 431844 G43.009 Allergic rhinitis 894889 04 J30.9 [id number] Ashley Amador NP , [facility], [address] [place] [address] 04/24/2018 10:38:27 04/24/2018 11:24:01 Cigarette smoker 85179753 F17.210 Only smokes 2-3 cigs/day. Knows should quit. Feels can do this on her own and plans to discuss with PCP when she returns for [place] in the winter Tobacco user 836380680 Z 72.0 Backache 148251582 M54.9 Enc continue heat prn, rest, avoid bending/li fting. Enc. ibuprofen 600 mg TID - can radha an ES Tylenol with the ibuprofen prn. Use muscle relaxer at HS - warned will cause drowsiness . Referred to PT as below. Pt will schedule at [facility] where she works. [id number] Rick Navarro MD , [facility], [address] [place] [address] 10/27/2018 10:28:35 10/30/2018 08:39:21 Abdominal pain 08409849 R10.9 [id number] AGUILAR Esquivel , [facility], [address] [place] [address] 02/28/2019 13:29:34 02/28/2019 15:26:49 Adult health examination 857149451 Z00.00 Counseling 321742917 Z71 .9 Depression screening 171 581081 Z13.89 depression screening tool administer ed, entered into emr, scored and discussed, time greater than 7.5 minutes Screening for malignant neoplasm of cervix 414638646 Z12.4 PAP today. Last PAP 2016, ASCUS, HPV negative. Previous hx of abnormal PAP. Loss of hair 177701180 L 65.9 Suspect hair loss is d/t decreased appetite r/t surgery and stress. Will continue with supplement s and will try to improve diet by adding in more vegetables and protien. Discussed making smoothies with softened veggies as needed. Will f/u if sxs persist. Diverticul itis of colon 715664195 K57.32 Perforatio n with diverting colostomy. 4 surgeries in past 6 mos. Reversal February 05. -- Dr. Vincent Rojas - [facility]. Benign par oxysmal positional vertigo 038670997 H81.13 Stable with Propanolol 20 mg TID and Clonazepam 1 mg 1/2 tab BID. Anxiety state 835060104 F41.1 Worsened. Pt will f/u if sxs persist post surgical recovery period. Major depr ession, melancholic type 272929840 F32.9 Worsened. Pt will f/u if sxs persist post surgical recovery period. Migraine without aura 56 245536 G43.009 Stable. Allergic rhinitis 086313 04 J30.9 Stable. [id number] Neo Araujo MD , [facility], [address] [place] [address] 11/05/2019 09:45:57 11/06/2019 15:57:04 Migraine without aura 02092958 G43.009 Stable. Onset of sxs 19 yrs ago - denies change in sxs. Will continue Propranolo l 20 mg 1 tablet daily and takes clonazepam 1 mg 1/2 tablet daily. Discussed risk/benef it of piping blocker benzo use. Discussed possibilit y of onset of migraine r/t benzo withdrawal (after several days of not taking medication ) rather than migraine sxs. Discussed option to increase Propranolo l (can go up to 40-80 mg daily) while tapering down benzo. Will continue to revisit with patient. F/u at upcoming wellness exam in January. [id number] Jerson Pascual MD , [facility], [address] [place] [address] 03/04/2020 10:30:47 03/06/2020 15:49:21 Adult health examination 997165678 Z00.00 Health Goals: Would like to lose weight. Would cut back on junk food and carbs. Hopes to improve lean meats and carbs. ETOH: Drinks 2-3 drinks 2-3 times per week. Denies drug use. No change in partner since checking STI. IUD Mirena inserted 2016, no complaints . No regular menses. Last PAP 2019, normal, repeat in 3 yrs. Abnormal PAP at age 18 y/o. Counseling 984999285 Z71 .9 including cardiovasc ular risk reduction counseling Depression screening 171 609856 Z13.89 depression screening tool administer ed, entered into emr, scored and discussed, time greater than 7.5 minutes Screening for alcohol abuse 745418352 Z13.39 negative. Migraine without aura 56 859419 G43.009 Stable. Onset of sxs 19 yrs ago - denies change in sxs. Will continue Propranolo l 20 mg 1 tablet daily and takes clonazepam 1 mg 1/2 tablet daily. Discussed risk/benef it of piping blocker benzo use. Discussed possibilit y of onset of migraine r/t benzo withdrawal (after several days of not taking medication ) rather than migraine sxs. Discussed option to increase Propranolo l (can go up to 40-80 mg daily) while tapering down benzo. Will continue to revisit with patient. F/u at upcoming wellness exam in January. Allergic rhinitis 824668 04 J30.9 Stable. Anxiety state 760897211 F41.1 Worsened. Pt will f/u if sxs persist post surgical recovery period. Benign par oxysmal positional vertigo 133119186 H81.13 Stable with Propanolol 20 mg TID and Clonazepam 1 mg 1/2 tab BID. Diverticul itis of colon 878232478 K57.32 Doing well post surgery. Major depr ession, melancholic type 430507051 F32.9 Stable Vitamin B1 2 deficiency (non anemic) 15379819 E53.8 [id number] AGUILAR Esquivel , [facility], [address] [place] [address] 10/02/2020 15:42:17 10/03/2020 14:40:58 Anxiety state 294317303 F41.1 Stable. F/u in 6 mos. Migraine without aura 56 956392 G43.009 Stable. Onset of sxs 19 yrs ago - denies change in sxs. Will continue Propranolo l 20 mg 1 tablet daily and takes clonazepam 1 mg 1/2 tablet daily. Discussed risk/benef it of piping blocker benzo use. Discussed possibilit y of onset of migraine r/t benzo withdrawal (after several days of not taking medication ) rather than migraine sxs. Discussed option to increase Propranolo l (can go up to 40-80 mg daily) while tapering down benzo. Will continue to revisit with patient. F/u at upcoming wellness in March. Will f/u w/ name of neurologis t to refer to. Benign par oxysmal positional vertigo 054051749 H81.13 Stable with Propanolol 20 mg TID and Clonazepam 1 mg 1/2 tab BID. Major depr ession, melancholic type 567416113 F32.9 Stable Loss of hair 173791787 L 65.9 Resolved after starting supplement s. [id number] Khushi Venegas DO , [facility], [address] [place] [address] 12/23/2020 16:21:17 12/24/2020 11:10:46 Screening for disorder 574684637 Z11.59 Contact de rmatitis caused by urushiol from [employer] 020877541 L25.5 Pt prefers trial of topical steroids over oral- apply with clean hands going around blisters. Rec placing some cream on the bandaid pad before placing over blisters and avoid popping them. Benadryl before bed. Call with new/worsen ing symptoms or if no improvemen t. Pt agrees with plan. [id number] Rolan Estevez MD , [facility], [address] [place] [address] 12/25/2020 09:39:15 12/31/2020 08:56:33 Contact dermatitis caused by urushiol from [employer] 630782140 L25.5 Very uncomforta ble and continuing to spread. Enc wash all clothing, including shoes, that she was wearing when doing yard work. Trial of benadryl at HS to help with sleep. Take prednisone taper as below - take early in the day and with food. F/u prn if not improving or sx worsening [id number] Danyel Garcia MD , [facility], [address] [place] [address] 04/13/2021 13:36:15 04/16/2021 08:11:41 Adult health examination 198466838 Z00.00 Health Goals: Become more healthy ETOH: Drinks 2-3 drinks 2-3 times per week. Denies drug use. No change in partner since checking STI. IUD Mirena inserted 2016, no complaints . No regular menses. Last PAP 2019, normal, repeat in 3 yrs. Abnormal PAP at age 18 y/o. Due for Td, declines todayDue now for colonoscop y. Counseling 512616485 Z71 .9 including cardiovasc ular risk reduction counseling Depression screening 171 748257 Z13.31 depression screening tool administer ed, entered into emr, scored and discussed, time greater than 7.5 minutes Screening for alcohol abuse 838644994 Z13.39 negative. Major depr ession, melancholic type 099524574 F32.9 Stable Allergic rhinitis 035571 04 J30.9 Stable. Migraine without aura 56 040810 G43.009 Stable. Onset of sxs 19 yrs ago - denies change in sxs. Will continue Propranolo l 20 mg 1 tablet daily and takes clonazepam 1 mg 1/2 tablet daily. Discussed risk/benef it of jail benzo use. Discussed possibilit y of onset of migraine r/t benzo withdrawal (after several days of not taking medication ) rather than migraine sxs. Discussed option to increase Propranolo l (can go up to 40-80 mg daily) while tapering down benzo. Will continue to revisit with patient. F/u in 6 mos. Will need refill before going on vacation next week, will most likely have to pay out of pocket as fill will be too soon. Patient will call with choice of pharmacy and amount of days needed. Will f/u w/ name of neurologis t to refer to. Muscle weakness 77892838 M62.81 Calves. Worse at night. F/u in 1 mos. Labs today. Screening for malignant neoplasm of colon 019418964 Z12.11 Gastroesop hageal reflux disease 341001837 K21.9 Will try to decrease to every other day. Would consider taper down to Famotidine . [id number] Carmen Rebolledo [facility], [address] [place] [address] 10/08/2021 07:59:12 10/14/2021 11:35:56 Infection of sebaceous cyst 078097269 L72.3 surg referral. [id number] [facility], [address] [place] [address] 04/20/2022 11:50:35 04/20/2022 14:52:20 Normocytic anemia 398385708 D64.9 Lab work now and f/u in 2 weeks. Referral to GI. Pain in bi lateral legs 8861693061 4995467 M79.604 M79.605 Onset 1 yr ago, worsening. Difficult to walk. Lab work, referral to ortho/spor ts medicine, and f/u in 2 weeks. Consider leave. We can also consider neurology referral. [id number] , [facility], [address] [place] [address] 05/11/2022 09:48:35 05/11/2022 17:13:50 Normocytic anemia 810347447 D64.9 Magnesium 1.5, lowAST elevatedAL T elevatedTI BC elevatedSa turation lowHgb 9HCT 28 She was previously referred to gastroente rology and agrees to call them and schedule. Will also send referral to hematology today. F/u in 1 mos at [facility] Pain in bi lateral legs 9764396112 4809712 M79.604 M79.605 Onset 1 yr ago, worsening. Difficult to walk. Suspect several issues - high arches in feet - IT band pain and SI joint d/o. I recommend consult w/ sports medicine and cash posting specialist which she agrees to. Will hold off on neurology referral for now - no numbness or weakness. Declines medication such as Duloxetine . F/u in 1 mos at [facility] also consider OMT consult in future. Low back pain 236329790 M54.50 F/u in 1 mos at [facility] Foot pain 15501376 M79.6 71 M79.672 Bilateral. Very high arches. I recommend insoles. [id number] Nel Graham MD , [facility], [address] [place] [address] 08/24/2022 09:29:47 08/24/2022 17:31:11 Adult health examination 429548376 Z00.00 Health Goals: Become more healthy ETOH: Drinks 2-3 drinks most days per week. Denies drug use. No change in partner since checking STI. IUD Mirena inserted 2016, no complaints . No regular menses. Last PAP 2018, normal, repeat in 3 yrs. Abnormal PAP at age 18 y/o. Colonoscop y and EGD 2022 - 7 yr recall. Counseling 620947562 Z71 .9 including cardiovasc ular risk reduction counseling Depression screening 171 730632 Z13.31 depression screening tool administer ed, entered into emr, scored and discussed, time greater than 7.5 minutes Screening for alcohol abuse 250497301 Z13.39 negative. Screening mammography 24 880403 Z12.31 Anxiety state 704558431 F41.1 Stable. F/u in 6 mos. Benign par oxysmal positional vertigo 331634711 H81.13 Stable with Propanolol 20 mg TID and Clonazepam 1 mg 1/2 tab BID. Diverticul itis of colon 959159742 K57.32 Doing well post surgery. Major depr ession, melancholic type 860780730 F32.9 Stable Migraine without aura 56 424627 G43.009 Stable. Onset of sxs 19 yrs ago - denies change in sxs. Will continue Propranolo l 20 mg 1 tablet daily and takes clonazepam 1 mg 1/2 tablet daily. Discussed risk/benef it of piping blocker benzo use. Discussed possibilit y of onset of migraine r/t benzo withdrawal (after several days of not taking medication ) rather than migraine sxs. Discussed option to increase Propranolo l (can go up to 40-80 mg daily) while tapering down benzo. Will continue to revisit with patient. F/u in 6 mos. Will need refill before going on vacation next week, will most likely have to pay out of pocket as fill will be too soon. Patient will call with choice of pharmacy and amount of days needed. Will f/u w/ name of neurologis t to refer to. Muscle pain 94654267 M79 .10 Muscle PainRheum. did MRI, dx w/ tendinopat hy of gluteus medius. MRI r/o myositis and showed tendonitis of gluteus muscles.Sa w neurology on Tuesday, they will schedule nerve conduction study. Did not think it sounded like fibromyalg ia. Neuro may consider MRI of brain and x-ray of back. Pt. declined pain medication . Next neurology visit isn't until September/ l. Does have upcoming lab work - magnesium and other labs ordered. Liver enzy mes level above reference range 105978397 R74.01 In care w/ gastroente rology. Labs at upcoming PAP. Known fatty liver. Alcoholic fatty liver 50 687088 K70.0 See above. Anemia 523756639 D64.9 In care w/ gastroente rology. UTD on EDG and colonoscop y. Dx w/ normochrom ic and normocytic anemia. Alcohol in take above recommended sensible limits 770860056 F10.10 2-3 drinks most days of the week. Known fatty liver and elevated liver enzymes. Not ready for change. [id number] Ashley Amador NP , [facility], [address] [place] [address] 09/23/2022 11:24:16 09/23/2022 13:54:32 Abdominal pain 08357062 R10.9 Reassured that U/a is neg. Could be diverticul itis although sx not typical. Opted to started antibiotic s as below. If not improving over the next 2-3 days, or if sx worsening, pt to f/u here or in the ER. Diverticul itis of colon 389520572 K57.32 [id number] Jatin Sherwood PA-C , [facility], [address] [place] [address] 12/23/2022 14:06:54 12/23/2022 14:46:59 Localized eruption of skin 521995427 R21 Patients presents for evaluation of rash that appears like a drug rash. The only new medication is hyoscyamin e but it was started in 10/21 and only taken sparingly. Treated with: Medrol dose pack. Follow up if rash is not improving or with other concerns. Tobacco user 841866115 Z 72.0 Smoking socially now. Reviewed long-[place] risks and resources [place] [facility] [id number] Khushi Venegas DO , [facility], [address] [place] [address] 01/12/2023 08:49:07 01/12/2023 14:04:07 Contact dermatitis caused by urushiol from [facility] zayra 378256378 L25.5 Avoid scratching or popping blisters. Start Prednisone taper as written below. If no improvemen t in 3-5 days, patient to return to office. Pt advised to see optho for concern of possible eye involvemen t, or go to ED if she has vision changes, pain with eye movements etc. Call with new/worsen ing symptoms or if no improvemen t. Pt agrees with plan. [id number] Monserrat Mcrae MD , [facility], [address] [place] [address] 04/22/2023 11:50:48 04/22/2023 12:39:40 Alcohol intake above recommended sensible limits 231807392 F10.10 Reports reduction. still endorses daily drinking. Known fatty liver and elevated liver enzymes. Alcoholic fatty liver 50 818062 K70.0 See above. In care w/ Jose SORIANO who is recommendi ng f/u labs and US. Benign par oxysmal positional vertigo 908614602 H81.13 Stable with Propanolol 20 mg TID and Clonazepam 1 mg 1/2 tab BID #17 tablets at a time with 3 refills. Vists every 6 mos. I have encouraged her to discuss her vertigo/mi graines w/ her neurologis t. Liver enzy mes level above reference range 675386310 R74.01 In care w/ gastroente rology. Myalgia/my ositis - multiple 835001529 M79.10 In care w/ neurology and undergoing workup. Discussed possible benefits of trying daily medication such as Gabapentin or Duloxetine - she will f/u w/ Neurology. Neuropathy 310880921 G62 .9 See above. Anxiety state 844048597 F41.1 Stable. F/u in 6 mos. [id number] Darlene Austin, AGUILAR , [facility], [address] [place] [address] 12/16/2023 11:01:21 12/21/2023 13:09:46 Adult health examination 948439102 Z00.00 Depression screening 171 100186 Z13.31 depression screening tool administer ed Screening for alcohol abuse 976176723 Z13.39 Alcohol use screening tool administer ed Screening for malignant neoplasm of cervix 304666586 Z12.4 Vaccine de clined by patient 3698883044 02 Z28.20 td/tdap Neuropathy 108768533 G62 .9 in care w/ neuro, diagnosed with neuropathy in both legstaking amitryptil ine, started 1 week ago and has f/u upcoming with casey alvares pt to discuss migraine sx with neuro, may be better med management instead of klonopin. pt has tried coming off klonopin in the past without success. discussed w/ pt risks of chronic daily benzo use. Migraine 30513800 G43.90 9 Pt taking 0.5mg klonopin once daily, will update prescripti on when pt requests next Tinnitus of left ear 967 9663147 106 H93.12 will refer to ENT for eval, tinnitus started after dental work, ? nerve irritation Menopausal syndrome 1237 80823 N95.9 will discuss further at f/u apptcould consider HRT [id number] Khushi Venegas DO , [facility], [address] [place] [address] 01/24/2024 15:23:50 01/30/2024 13:30:37 Migraine variants 299262035 G43.809 Pt w/ atypical migrainest lety has not had migraine since started on klonopin and propranolo l 23 years ago but states they come back if she doesn't take her klonopin for a few hours. states she recalls migraine sx including eyes feeling like they're bulging out of her face, head feeling heavy but denies headache. discussed sx likely benzo withdrawal rather than migraines. discussed klonopin not appropriat e migraine tx, and concern for misuse with patient taking more klonopin for prescribed , also using it for sleep on occasion, and using more alcohol than recommende d and was unwilling to discuss this at her prior wellness visit. Advised pt to discuss migraine management with neuro - if they feel it is appropriat e tx they can prescribe her klonopin, otherwise I would like to taper her off klonopin (i.e. dec by 1/4 of 0.5mg tablet every 6 weeks or so while increasing propranolo l dose). Neuropathy 399185952 G62 .9 in care w/ neuro, diagnosed with neuropathy in both legstaking amitryptil ine, feels like it is helping with symptoms [id number] Ramón Merlos MD , [facility], [address] [place] [address] 06/15/2024 15:01:10 06/15/2024 16:02:11 Nicotine dependence [id number] F17.200 We discussed your smoking/va ping today for more than 3 minutes. Smoking tobacco is the leading cause of preventabl e disease, disability , and in the [place]. Inhaling aerosolize d nicotine is widely believed to be safer than combustibl e tobacco, but still exposes people to numerous harmful substances , heavy metals like lead, and cancer-cau sing agents. Nicotine is harmful to developing brains and can disrupt the formation of brain circuits that control attention, learning, and susceptibi lity to addiction. We talked about tools and medication s available to help you in smoking/va ping cessation. We discussed utilizing our smoking cessation assistant tennis coach and online resources. Your personal goal: Migraine [id number] G43.90 9 conitnue medication s. Gastroesop hageal reflux disease [id number] K21.9 Discussed consdider weaning. TO WEAN OFF PROTON PUMP INHIBITOR: Take the PPI (omeprazol e(Prilosec ), pantoprazo le, lanzoprazo le(Prevaci d), etc) for 2 more weeks. During that time start DGL-Plus from Pure Encapsulat ions- 1 daily with meal( coats the stomach). After 2 wks, add famotidine mg twice a day AND go to every OTHER DAY of the PPI for a week, then every 3 days for a week then stop. Continue the DGL-plus as well as famotidine twice a day for 2 more wks, then go to daily dosing of ranitidine for 1 week, then every other day for a week, then stop ranitidine , continue DGL. When off famotidine . for 2 wks, can consdier stopping DGL. Of note, may need D-Limonine as well. -helps move things through the stomach- so less reflux. Active or passive immunization [id number] Z23 Flu: Will do at work 06/15/24 SDTD: Will do at another visit 06/15/24 SDShingles : Discussed, at pharmacy 06/15/24 SDPneumo: Discussed, at pharmacy 06/15/24 SD Menopausal flushing 1984 33868 N95.1 will start estrogen patch, check levels. IF FSH hihg, can take out mirena. If now, would need progestin. Perimenopausal state [id number] 47631 Z78.0 Loss of hair [id number] L 65.9 Contraception care 42241 5005 Z30.40 [id number] Ramón Merlos MD , [facility], [address] [place] [address] 07/20/2024 16:00:02 07/23/2024 11:13:22 Active or passive immunization [id number] Z23 TD: refusedShi ngles & Pneumo: knows to get at pharmacy Macrocytos is - no anemia [id number] D75.89 Has had low B12 and S is taking about 100 mcg a day of B12 not 1000. If her level is under 300 I would recommend using 1000 mcg a day supplement s which are available over-the-c ounter Menopausal syndrome 1237 00093 N95.9 start combipatch . has mirena- over 7 yrs now so not relasesing en ough hormone so will use esterogen/ pregestero n combinatio n. of note FSH 102- post menopausal Addendum- mirena good for 8 yrs . so likely still having progestin from that. So until gets removed, will do estrogen only. rec; IUD removal soon Elevated blood-pressure reading without diagnosis of hypertension [id number] R03.0 declines recheck. Toos tressed right now;had hard day Health Concerns Section Related Observation LastModified by Organization Detai ls LastModified Time None Recorded Concern Status LastModified by Organization Details LastModified Time None Recorded Advance Directives Directive N: Payers Encounter Date Sequence Insurance Name Policy Number Policy Thayer Covered Member ID Thayer Member ID Guarantor Name 04/22/2023 1 [employer] [id number] Kelli M Laversa [id number] Kelli M Laversa 12/16/2023 1 [employer] [id number] Kelli M Laversa [id number] Kelli M Laversa 01/24/2024 1 [employer] [place] [id number] Kelli M Laversa [id number] Kelli M Laversa 06/15/2024 1 [employer] [id number] Kelli M Laversa [id number] Kelli M Laversa 07/20/2024 1 [employer] [id number] Kelli M Laversa [id number] Kelli M Laversa Notes Date Note Type Note Provider Name and Address Organization Details Recorded Time 3 text/html Medication review Monserrat Mcrae MD [address] [place] [address], [phone], [facility] 04/29/2023 09:10:18 4 text/html Physical Exam/FemaleReported bypatient.PHAPatient is here for a Wellness Visit. She describes her health status as good. Patient's health is worse than last year.Risk Assessment and Lifestyle Change Counseling 18-50Reported bypatient.Coronary Artery Disease Risk Assesment:Family History of Coronary Artery Disease; No personal history of diabetes; No history of peripheral vascular disease, AAA, or carotid disease; No personal history of coronary artery disease Breast Cancer Risk Assessment:No family history of breast cancer; No history of breast cancer or dcis Lung Cancer Risk Assessment:Former smoker; No asbestos exposure Cognitive/Behavioral Risk Assessment:Personal history of mental illness Safety Risk Assessment:No evidence of abuse/neglect Diet:Counseled about eating a diet low in trans and saturated fats and high in fiber, fruits and vegetables; Discussed the value of a Mediterranean diet, and eating more fruits and vegetables Exercise counseling:Discussed the importance of daily physical activity Safety:Counseled about home safety including use of smoke detectors, CO detectors, keeping home water temperature less than 120; Counseled about use of seat belts Family Planning:Using control IUD Pt w/ pmhx sig for aniety, depression, alcoholic fatty liver, migraines presenting for wellness visit PAP 02/28/2019 repeat 3 yrsMammogram - scheduled 4Colon 02/05/2019, perforated sigmoid colon 2/2 diverticulitis in care w/ neuro and GI concerns:1. hot flashesdoesnt get any bleeding w/ mirena. has had in since 2017hot flashes ongoing for couple yearsnow having multiple daily 2. had dental work done couple mos ago, numbed significantlydeveloped ear pain and tinnnitus afterwardsloud whooping in ear, will wake her upnot painful anymorehappens every day for some period of time, usually towards end of daynot constantlittle bit of jaw pain but pretty mild diverticulosis pain that comes and goes-enemas prn if painful BMs and hycosamine prn neuro prescribed klonopin and propranolol daily for migrainesPt states she was diagnosed w/ migraines without DUKE by neurologist in the pasttakes 0.5mg daily with propranolol sometimes takes an additional klonopin for sleepingdoesnt like trazodone, sometimes takes her boyfriends hydroxyzinesleep usually pretty good will smoke 1-2 cigarettes occasionallystates not drinking daily, couple drinks few times per week Darlene Austin, AGUILAR [address] [place], [address], [facility] 12/16/2023 13:19:33 4 text/html Video Visit - discuss clonazepam usage patient states using clonazepam 0.5mg 1 tablet in the morning along with propranolol 20mg (1 tablet) for migraine. (Propranolol is written as three times day though patient states she is only taking one tablet daily.) [facility] information:01/20/2024 Clonazepam 0.5 Mg Tablet #2806 Clonazepam 0.5 Mg Tablet # Clonazepam 0.5 Mg Tablet #2805 Clonazepam 1 Mg Tablet #17011/08/2023 Clonazepam 1 Mg Tablet # 17 take 20mg propranololshe thinks amitryptiline is helping with neuropathysometimes takes additional klonopin tab for sleep at nightnegative symptoms: feels like she doesnt have control of head, feels like head is bulgingstates has been on this regimen for 23 yearsno headache Khushi Venegas, DO [address] [place], [address], [facility] 01/25/2024 10:10:22 4 text/html a/vmg-smoking [id number] bypatient.Notes:tried Vap- did not like , but used a patch. and itworked. 06/15/24 The patient, with a history of migraines, diverticulitis, and a stomach surgery, presents with concerns about menopausal symptoms, particularly hot flashes. The patient describes the hot flashes as vicious and occurring multiple times a day, causing discomfort and embarrassment at work. The patient denies experiencing other common menopausal symptoms such as mood changes or sleep disturbances.The patient also mentions a history of migraines, which are currently managed with clonazepam and propranolol. These medications were initially prescribed by a neurologist and have been effective in controlling the patient's symptoms. The patient is considering weaning off clonazepam due to concerns about long-term use.The patient also reports bloating, which she describes as making her appear . The patient is unsure if this is related to menopause or another underlying issue.The patient is currently on omeprazole for reflux and is considering weaning off this medication due to potential side effects. The patient also has a Mirena IUD, which is due to be replaced or removed in the next year. The patient is unsure of her current menopausal status and is seeking advice on whether to replace the IUD or consider other options. Ramón Merlos MD [address] [place] [address], [phone], [facility] 06/15/2024 17:28:04 4 text/html a/vmg-smoking [id number] bypatient.Notes:tried Vap- did not like , but used a patch. and itworked. She was seen last month for blood flashes fairly severe, bloating, FSH was 102 which is definitely in the menopausal range. Has IUD which is progesterone only and is7-1/2 years old.Of note on her labs she has macrocytosis and has had a low B12 in 2021 but did not have a full follow-up for that. takes [facility] b- complex- has 100 mcg b12. has had low B12 in t he past. 2021takes iron. Ramón Merlos MD [address] [place] [address], [phone], [facility] 07/20/2024 17:25:25 OBGyn Episode No OBEpisode recorded.
== END 2024-08-29 15:48 | disposition home or self-care (01) ==
PROVIDERS: PCP Nurse Practitioner Family; Visit Provider Nurse Practitioner Family
DX: M79.18 Myalgia, other site (principal); G62.89 Other specified polyneuropathies; R20.2 Paresthesia of skin
CPT/HCPCS: 99214

== ENCOUNTER → 2024-08-29 14:50 | Outpatient (BNVA) | payer OTHER, SELFPAY | PROVIDERS: PCP Nurse Practitioner Family; Visit Provider Nurse Practitioner Family ==

== ENCOUNTER 2025-02-27 14:54 | Outpatient (AMB) | payer OTHER, SELFPAY ==
--- NOTE | 2025-02-27 15:03 | A.OFFVIS_ITS ---
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 Pt denies any significant interval medical changes. The pains in her legs are still improved. Legs may be sore at the end of the day, but feels this is more manageable. No focal weakness. She continues to wear walking sneakers, which she still feels has been most helpful. She does continue on amitriptyline 20 mg q.h.s.-feels this is helping and well-tolerated She continues on dietary turmeric/sarabjit/pepper supplement-for weight, but also general health. She notes she is more active during the summer months, a close family member has a pool that she has access to. Denies structured scheduled exercise activity. She states she is trying to be mindful to reduce her portion size, and to regular make healthier food choices [facility] Medical History Encounter for testing for latent tuberculosis infection Migraine Anemia Intestinal perforation Acute diverticulitis Perianal abscess Hypertension Surgical History History of esophagogastroduodenoscopy (EGD) Hx of colonoscopy History of colostomy reversal History of colon resection History of eye surgery History of appendix removal History of drainage of abscess Family History Maternal Grandfather Lung cancer Maternal Grandmother Stomach cancer Father Diabetes Cardiac arrest Social History Household Members: Significant Other and Children Housing: House Are you a primary hospice spiritual care coordinator to a significant other at home: No Do you presently have visiting nurse or other home services: No Alcohol intake: current Alcohol intake frequency: a few times a month Patient Tobacco Use Status: Current someday Tobacco user Tobacco use type: Cigarette service: No Current occupational status: employed Current occupation: [employer] [place] Physical Exam Vital Signs: Last Vital Signs Pulse 83 02/27/25 15:08 BP 110/80 02/27/25 15:08 Pulse Ox 99 02/27/25 15:08 Oxygen Delivery Method Room Air 02/27/25 15:08 Const General: cooperative and no acute distress Orientation/consciousness: patient oriented x3 Resp Effort & Inspection: normal respiratory effort and able to speak in complete sentences Neuro General: patient oriented x3 Cranial nerves: Yes CN's II-XII intact bilaterally Cognition (Neuro): normal cognition Psych Appearance: grossly normal Mental Status: mental status grossly normal Speech and movement: Normal speech and movement present Affect: normal affect Attitude: cooperative Assessment & Plan Assessment & Plan (1) Myalgia, lower leg: Comment: BLE Code(s): M79.18 - Myalgia, other site Category: Medical (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 Continue Amitriptyline 20 mg qhs. Continue to wear supportive well fitting footwear. Try to increase fruit and vegetable intake. Tried to engage in regular physical activity, which can be incorporated into her daily routine. Future considerations- further axonal sensorimotor neuropathy work-up. F/u in 6 months or sooner prn. Coding Level of Care Code Est Pt Level 4 (97056) Diagnoses Myalgia, lower leg M79.18 Axonal sensorimotor neuropathy G62.89 Paresthesia of both feet R20.2
[2025-02-27 15:08] VITALS: BP 110/80; PULSE 83; O2SAT 99
--- OUTSIDE RECORDS SUMMARY | 2025-02-27 15:39 | XMS_ITS | Clinical Summary ---
Author Organization [facility] Address [address] [place] [address] Phone Care Team Providers Care Compensation Administrator Name Role Phone Rick Navarro MD Primary Care Provider [email or web address] Allergies No known active allergies Medications propranolol (INDERAL) 20 MG immediate release tablet TAKE 1 TABLET BY MOUTH 3 TIMES A DAY Active cetirizine (ZYRTEC) 10 mg Cap 1 tablet Active clonazePAM (KLONOPIN) 0.5 MG tablet TAKE 1 TABLET BY MOUTH daily, and AT BEDTIME as needed Active omeprazole (PRILOSEC) 20 MG capsule 1 capsule Active Social History Tobacco Use Types Packs/Day Years Used Date Smoking Tobacco: Every Day Smokeless Tobacco: Never Alcohol Use Standard Drinks/Week Comments Yes 0 (1 standard drink = 0.6 oz pur e alcohol) Education Answer Date Recorded Are you interested in more education? Not on rosangela e 11/26/2022 Are you concerned about learning? Not on file 11/26/2022 No 11/26/2022 No 11/26/2022 Digital Access Answer Date Recorded No 12/27/2022 No 12/27/2022 No 12/27/2022 Reliable internet access at home? Not on file 12/27/2022 Device with a working camera? Not on file Comments No Sex and Gender Information Value Date Recorded Sex Assigned at Female 10/27/2018 12:18 PM EDT Legal Sex Female 9:31 PM EDT Gender Identity Female 10/27/2018 12:18 PM EDT Sexual Orientation Straight 10/27/2018 12 :18 PM EDT Last Filed Vital Signs Vital Sign Reading Time Taken Comments Blood Pressure 110/88 10/27/2018 4:30 PM EDT Pulse 88 10/27/2018 4:30 PM EDT Temperature 37.1 C (98.8 F) 10/27/2018 4:30 PM EDT Respiratory Rate 18 10/27/2018 1:35 PM EDT Oxygen Saturation 99% 10/27/2018 4:30 PM EDT Inhaled Oxygen Concentration - - Weight 56.7 kg (125 lb) 10/27/2018 12:15 PM EDT Height 152.4 cm (5') 10/27/2018 12:15 PM EDT Body Mass Index 24.41 10/27/2018 12:15 PM EDT Plan of Treatment Not on file Medical Devices [place] [address] [employer] ADMINISTRATORS [employer] ADMINISTRATORS [place] [employer]AT[employer] [facility] [place] [employer] [facility] ADMINISTRATORS [facility] [employer] [address] Care Teams Compensation Administrator Relationship Specialty Start Date End Date Rick Navarro MD [email or web address] PCP - General Family Medicine 10/27/18 Additional Source Comments The information contained in this document represents components of the legal health record. It is not the complete legal health record.[facility]
--- OUTSIDE RECORDS SUMMARY | 2025-02-27 15:39 | XMS_ITS | Patient Health Record ---
Author Organization [facility] Address [address] [place] [address] Care Team Providers Care Salon Designer Name Role Phone Ramon (retired) Rick FALCON Primary Care Provide r Conrad Almendarez Unavailable [phone] Reason For Referral No Information Medications Medication SIG (Take, Route, Frequency, Duration) Notes Start Date End Date Status Multi Vitamin/Minerals Active clonazePAM 0.5mg Act betty Propranolol HCl 20mg Active PriLOSEC 20mg Active ZyrTEC Allergy 10mg Active Hyoscyamine Sulfate 0.125 MG 1-2 tablets 30-60 minutes before meals Orally Four times a day for 30 days 06/17/2011 08/01/2024 Active Problems Problem Type SNOMED Code ICD Code Onset Dates Problem Status W/U Status Risk Notes Problem Irritable bowel syndrome (57493905) Irritable bowel syndrome (564.1) Active confirmed Problem Diarrhea (42242223) Diarrhea (787.91) Active confirmed Problem Right upper quadrant pain (719691502) Abdominal pain, right upper quadrant (789.01) Active confirmed Problem Abdominal pain, epigastric (789.06) Active confirmed Plan Of Treatment Pending Test Test Name Order Date TRANSGLUTAMINASE AB IGA 06/17/2011 TRANSGLUTAMINASE AB IGG 06/17/2011 CELIAC DISEASE ANTIBODY PANEL 06/17/2011 NUC HIDA SCAN 07/06/2011 Future Test Test Name Order Date FLEXIBLE SIGMOIDOSCOPY, DIAGNOSTIC 06/17 UPPER GI ENDOSCOPY 06/17/2011 Insurance Providers Payer Name Payer Address Payer Phone Subscriber Number Group Number Insured Name Patient Relationship to Insured Coverage Start Date Coverage End Date [employer] AD[employer] [address] [address] [place], [place] [id number] KELLY LANGSTON Self - patient is the insured Medical (General) History Medical History History ICD Code migraines irritable bowel syndrome Denies NC,DM,CVA,Lung disease,renal dise ase Surgical History Surgery Date(Month/Year) Eye
== END 2025-02-27 16:05 | disposition home or self-care (01) ==
LOC: HO.HSMS 14:54
PROVIDERS: PCP Nurse Practitioner Family; Visit Provider Nurse Practitioner Family
DX: M79.18 Myalgia, other site (principal); G62.89 Other specified polyneuropathies; R20.2 Paresthesia of skin
CPT/HCPCS: 99214